=== PATIENT | male | born 1975 | race African-American/Black ===

== ENCOUNTER 2016-10-07 21:36 | Emergency (ER) | payer OTHER ==
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
[2016-10-07] MEDS ORDERED: HYDROCODONE/ACETAMINOPHEN 5-325 MG 6 TAB/DSPK PO PRN (23:35)
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
[2016-10-08 00:12] VITALS: BP 107/74
== END 2016-10-08 00:05 | disposition home or self-care (01) ==
LOC: ER 21:36
DX: M25.512 Pain in left shoulder (principal); M79.1 Myalgia; V48.5XXA Car driver injured in noncollision transport accident in traffic accident, initial encounter
CPT/HCPCS: 99283

== ENCOUNTER 2017-11-17 16:22 | Emergency (ER) | payer OTHER ==
[2017-11-17] MEDS ORDERED: HYDROMORPHONE HCL INJ/PF 2 MG/ML AMPULE IM ONE (17:17)
[2017-11-17] MEDS ORDERED: LIDOCAINE 5% (700 MG) TRANSDERMAL ADH..PATCH TP ONE (17:20)
--- NOTE | 2017-11-17 17:20 | ER Document Report ---
HPI - HPI Patient complains to provider of: Low back pain Onset: Other - 13 years Onset/Duration: Worse Quality of pain: Sharp Pain Level: 4 Context: Patient complains of chronic back pain for the past 13 years that worsened 10 days ago. Patient states that he thought that he was starting to gain weight and was attempting to increase his exercise by doing sit ups. Patient states the following day his back pain flared up. Patient denies any radiculopathy, paresthesia urinary retention or incontinence symptoms. Patient denies any fever. Patient denies any other new trauma. Patient is concerned that he needs x-rays because of how sharp his back pain is. Associated Symptoms: Other - Low back pain. denies: Fever Exacerbated by: Movement Relieved by: Denies Similar symptoms previously: Yes Recently seen / treated by doctor: No - ROS ROS below otherwise negative: Yes Systems Reviewed and Negative: Yes All other systems reviewed and negative - CONSTITUTIONAL Constitutional: DENIES: Fever, Chills - NEURO Neurology: DENIES: Headache, Weakness - GASTROINTESTINAL Gastrointestinal: DENIES: Nausea, Patient vomiting - URINARY Urinary: DENIES: Dysuria - MUSCULOSKELETAL Musculoskeletal: REPORTS: Back Pain. DENIES: Extremity pain, Neck Pain - DERM Skin Color: Normal Skin Problems: None Past Medical History - General Information source: Patient - Social History Smoking Status: Never Smoker Frequency of alcohol use: Occasional Drug Abuse: None Occupation: None Lives with: Spouse/Significant other Family History: Hypertension. denies: CAD - Past Medical History Cardiac Medical History: Reports: Hx Hypertension Renal/ Medical History: Denies: Hx Peritoneal Dialysis Musculoskeltal Medical History: Reports Hx Musculoskeletal Deformity, Reports Hx Musculoskeletal Trauma, Reports Other - Tronic back pain Psychiatric Medical History: Reports: Hx Depression, Hx Post Traumatic Stress Disorder Past Surgical History: Reports: Hx Orthopedic Surgery - LLE for compartment syndrome - Immunizations Immunizations up to date: Yes Hx Diphtheria, Pertussis, Tetanus Vaccination: Yes - 2011 Vertical Provider Document - CONSTITUTIONAL Agree With Documented VS: Yes Exam Limitations: No Limitations General Appearance: WD/WN, No Apparent Distress Notes: PHYSICAL EXAMINATION: GENERAL: Well-appearing, well-nourished and in no acute distress. HEAD: Atraumatic, normocephalic. EYES: sclera clear, anicteric, conjunctiva are normal. ENT: nares patent, Moist mucous membranes. NECK: Normal range of motion, supple no lymphadenopathy LUNGS: respirations unlabored HEART: Regular rate and rhythm without murmurs EXTREMITIES: Normal range of motion, no pitting or edema. No cyanosis. Gait normal, pt ambulates without difficulty BACK: Lower lumbar paraspinal tenderness, lower lumbar midline tenderness, no deformities or step-offs. No CVA tenderness. NEUROLOGICAL: Cranial nerves grossly intact. Normal speech, normal gait. No saddle anesthesia. 1+ bilateral patellar and Achilles reflexes, no footdrop PSYCH: Normal mood, normal affect. SKIN: Warm, Dry, normal turgor, no rashes or lesions noted. - INFECTION CONTROL TRAVEL OUTSIDE OF THE [place] IN LAST 30 DAYS: No - RESPIRATORY O2 Sat by Pulse Oximetry: 97 Course - Re-evaluation Re-evalutation: 11/17/17 17:19 Discussed with patient plan of care. Patient is insistent that he needs an x- ray of his low back. Patient advised that he will likely need outpatient follow -up with his primary doctor for referral for an outpatient MRI as well as pain management and physical therapy referrals. Patient still insistent that he needs an x-ray of his back. 11/17/17 18:10 The patient presents with low back pain without signs of spinal cord compression , cauda equina syndrome, infection, aneurysm, or other serious etiology. The patient is neurologically intact. Given the extremely risk of these diagnoses further testing and evaluation for these possibilities does not appear to be indicated at this time. Patient has been instructed to return if the symptoms worsen or change in any way. - Vital Signs Vital signs: Temp Pulse Resp BP Pulse Ox 98.4 F 93 20 132/85 H 97 11/17/17 16:27 11/17/17 16:27 11/17/17 16:27 11/17/17 16:27 11/17/17 16:27 - Diagnostic Test Radiology reviewed: Reports reviewed Discharge - Discharge Clinical Impression: Low back pain Qualifiers: Chronicity: chronic Back pain laterality: bilateral Sciatica presence: without sciatica Qualified Code(s): M54.5 - Low back pain Condition: Stable Disposition: HOME, SELF-CARE Instructions: Ice Packs ([facility]), Low Back Pain ([facility]), Oral Narcotic Medication ( [facility]), Warm Packs ([facility]) Additional Instructions: Return immediately for any new or worsening symptoms Followup with your primary care provider, call tomorrow to make a followup appointment You may benefit from a referral to physical therapy as well as pain management for further management of her chronic low back pain symptoms. You should also follow-up with a spinal specialist. Your primary doctor can make these referrals for you. Prescriptions: Oxycodone HCl/Acetaminophen [Percocet 5-325 mg Tablet] 1 tab PO ASDIR PRN #15 tablet PRN Reason: Referrals: [facility] [Provider Group] - Follow up as needed [facility] [Provider Group] - 11/20/17
--- NOTE | 2017-11-17 17:59 | RADIOLOGY REPORT (SQ) ---
EXAM DESCRIPTION: L SPINE WHOLE COMPLETED DATE/TIME: 11/17/2017 5:42 pm REASON FOR STUDY: low back pain COMPARISON: None. NUMBER OF VIEWS: Five views including obliques. TECHNIQUE: AP, lateral, oblique, and sacral radiographic images acquired of the lumbar spine. LIMITATIONS: None. FINDINGS: MINERALIZATION: Normal. SEGMENTATION: Normal. No transitional anatomy. ALIGNMENT: Normal. VERTEBRAE: Maintained height. No fracture or worrisome bone lesion. DISCS: Multilevel disc space narrowing with osteophytes. POSTERIOR ELEMENTS: Pedicles and facets are intact. No pars defect or posterior arch defects. Facet arthropathy is present. HARDWARE: None in the spine. PARASPINAL SOFT TISSUES: Normal. PELVIS: Intact as visualized. No fractures or worrisome bone lesions. SI joints intact. OTHER: No other significant finding. IMPRESSION: SPONDYLOSIS WITHOUT BONE LESION OR FRACTURE. TECHNICAL DOCUMENTATION: JOB ID: [id number] [place]-72 2010 [employer]- All Rights Reserved Reading location - IP/workstation name: [email or web address]
[2017-11-17 18:49] VITALS: BP 121/91
== END 2017-11-17 18:47 | disposition home or self-care (01) ==
LOC: ER 16:22
DX: M54.5 Low back pain (principal); G89.29 Other chronic pain
CPT/HCPCS: 99283; 96372; 72110; J1170

== ENCOUNTER 2019-09-12 19:57 | Inpatient (IN) | payer OTHER ==
[~2019-09-12 19:57] MED LIST: ETOMIDATE INJ/PF 20 MG/10 ML SDV IV ONE; SUCCINYLCHOLINE CHLORIDE INJ 200 MG/10 ML VIAL ONE
[2019-09-12] MEDS ORDERED: ONDANSETRON HCL INJ/PF 4 MG/2 ML SDV IV ONE (20:06)
[2019-09-12] MEDS ORDERED: NALOXONE HCL INJ 2 MG/2 ML DISP.SYRIN IV ONE (20:06)
[2019-09-12] MEDS ORDERED: PROPOFOL INJ 200 MG/20 ML VIAL IV ONE (20:21)
[2019-09-12] MEDS ORDERED: SUCCINYLCHOLINE CHLORIDE INJ 200 MG/10 ML VIAL IV ONE ×2 (20:28→20:36)
[2019-09-12] MEDS ORDERED: ETOMIDATE INJ/PF 20 MG/10 ML SDV IV ONE (20:28)
[2019-09-12 20:30] LABS: VENOUS BLOOD BASE EXCESS -1.7 mmol/L; VENOUS BLOOD HCO3 24.9 mmol/L (20-32); VENOUS BLOOD PH 7.32 (7.30-7.42)
[2019-09-12] MEDS ORDERED: NORMAL SALINE 500 ML IV ONE (20:31)
[2019-09-12 20:32] LABS: ABSOLUTE BASOPHILS # (AUTO) 0.1 10^3/uL (0.0-0.2); ABSOLUTE EOSINOPHILS # (AUTO) 0.1 10^3/uL (0.0-0.6); ABSOLUTE LYMPHOCYTES (AUTO) 1.9 10^3/uL (0.5-4.7); ABSOLUTE MONOCYTES (AUTO) 0.4 10^3/uL (0.1-1.4); ABSOLUTE NEUT (AUTO) 1.3 10^3/uL (1.7-8.2); BASOPHILS % (AUTO) 1.4 % (0-2); EOSINOPHILS % (AUTO) 3.1 % (0-6); HEMATOCRIT 40.4 % (37.9-51.0); HEMOGLOBIN 13.6 g/dL (13.5-17.0); LYMPHOCYTES % (AUTO) 50.4 % (13-45); MEAN CORPUSCULAR HEMOGLOBIN 30.3 pg (27.0-33.4); MEAN CORPUSCULAR HGB CONC 33.7 g/dL (32.0-36.0); MEAN CORPUSCULAR VOLUME 90 fl (80-97); PLATELET COUNT 207 10^3/uL (150-450); RED BLOOD COUNT 4.49 10^6/uL (4.35-5.55); RED CELL DISTRIBUTION WIDTH 13.2 % (11.5-14.0); SEGMENTED NEUTROPHILS % (AUTO) 34.1 % (42-78); TOTAL CELLS COUNTED % (AUTO) 100 %; WHITE BLOOD COUNT 3.8 10^3/uL (4.0-10.5)
[2019-09-12] MEDS ORDERED: HYDROCORTISONE SOD SUCCINATE INJ/PF 100 MG/2 ML SDV IV ONE (20:33)
[2019-09-12] MEDS ORDERED: NORMAL SALINE 1000 ML 1,000 ML IV ONE ×2 (20:34→23:59)
[2019-09-12] MEDS ORDERED: PIPERACILLIN/TAZOBACTAM 3.375 GM VIAL IV ONE ×2 (20:37→23:05)
--- NOTE | 2019-09-12 20:38 | ER Document Report ---
ED General - General Stated Complaint: UNRESPONSIVE Mode of Arrival: Medic Information source: Emergency Med Personnel Cannot obtain history due to: Altered mental status, Other TRAVEL OUTSIDE OF THE [place] IN LAST 30 DAYS: No - HPI Onset: Other - [place] and EMS [place]. - Related Data Allergies/Adverse Reactions: No Known Allergies Allergy (Verified 11/17/17 16:23) Past Medical History - General Information source: Emergency Med Personnel - Social History Smoking Status: Current Every Day Smoker Lives with: Family Family History: Hypertension. denies: CAD Renal/ Medical History: Denies: Hx Peritoneal Dialysis Musculoskeletal Medical History: Reports Hx Musculoskeletal Deformity, Reports Hx Musculoskeletal Trauma Psychiatric Medical History: Reports: Hx Depression, Hx Post Traumatic Stress Disorder Past Surgical History: Reports: Hx Orthopedic Surgery - LLE for compartment syndrome - Immunizations Immunizations up to date: Yes Hx Diphtheria, Pertussis, Tetanus Vaccination: Yes - 2011 Physical Exam - Vital signs Vitals: Resp Pulse Ox 15 98 09/12/19 20:04 09/12/19 20:04 Interpretation: Normal - Notes Notes: Patient obtunded unresponsive unable to control airway secretions. Therefore elected to intubate patient for airway protection and his altered mental status. - General General appearance: Appears well, Alert In distress: Severe - HEENT Head: Normocephalic, Atraumatic Eyes: Normal Conjunctiva: Normal - Unresponsive and unable to maintain open airway. Despite IV Narcan 2 mg and Zofran 4 mg patient still unarousable. Pupils: PERRL Mouth/Lips: Normal Mucous membranes: Moist Neck: Normal - Respiratory Respiratory status: Agonal respirations Chest status: Nontender Breath sounds: Normal Chest palpation: Normal - Cardiovascular Rhythm: Regular Heart sounds: Normal auscultation Murmur: No - Abdominal Inspection: Normal Distension: No distension Bowel sounds: Normal Tenderness: Nontender Organomegaly: No organomegaly - Back Back: Normal, Nontender - Extremities General upper extremity: Normal inspection, Nontender, Normal color, Normal ROM, Normal temperature General lower extremity: Normal inspection, Nontender, Normal color, Normal ROM, Normal temperature, Normal weight bearing. No: Zohaib's sign - Neurological Neuro grossly intact: No - Patient somnolent obtunded flaccid and has motor strength diffuse. Agonal. Cognition: Normal, Other - Unable to do a complete neuro exam due to patient's obtunded state. Orientation: AAOx4 Henderson Coma Scale Eye Opening: Spontaneous Marquita Coma Scale Verbal: Oriented Henderson Coma Scale Motor: Obeys Commands Henderson Coma Scale Total: 15 Speech: Normal Motor strength normal: LUE, RUE, LLE, RLE Sensory: Normal Notes: Flaccid extremities throughout upper and lower extremities. Unable to maintain airway secretions. Ducted to intubate patient for airway control due to unconscious state. - Psychological Associated symptoms: Normal affect, Normal mood - Skin Skin Temperature: Warm Skin Moisture: Dry Skin Color: Normal Course - Re-evaluation Re-evalutation: 09/12/19 22:59 Reevaluation patient is hemodynamically stable intubated resting comfortably sats are in the normal range. - Vital Signs Vital signs: Temp Pulse Resp BP Pulse Ox 15 93/59 L 98 09/12/19 22:36 09/12/19 22:36 09/12/19 22:36 - Laboratory Result Diagrams: 09/12/19 20:12 09/12/19 20:12 Laboratory results interpreted by me: 09/12/19 09/12/19 09/12/19 20:12 20:12 20:12 WBC 3.8 L Lymph % (Auto) 50.4 H Absolute Neuts (auto) 1.3 L Seg Neutrophils % 34.1 L Creatinine 1.50 H Est GFR (MDRD) Non-Af 51 L Glucose 129 H Lactic Acid 2.9 H AST 127 H Creatine Kinase 705 H Total Protein 9.2 H TSH Urine Protein Urine Blood Salicylates < 1.0 L Acetaminophen < 10 L Serum Alcohol 09/12/19 09/12/19 09/12/19 20:12 20:12 20:47 WBC Lymph % (Auto) Absolute Neuts (auto) Seg Neutrophils % Creatinine Est GFR (MDRD) Non-Af Glucose Lactic Acid AST Creatine Kinase Total Protein TSH 0.38 L Urine Protein 30 H Urine Blood SMALL H Salicylates Acetaminophen Serum Alcohol 546 H* - Diagnostic Test Radiology reviewed: Image reviewed, Reports reviewed Procedures - Intubation Orotracheal Airway evaluation: Large tongue Mallampati Classification: Class 2 Medications: Etomidate, Succinylcholine, Diprivan Intubation method: Orotracheal Blade type: Bharath Blade size: 3 ETT size: 8.0 ETT secured at: Gums ETT secured at (cm): 24 Ventilator settings: CMV Tidal volume: 500 FiO2: 50 Respirations: 14 PEEP: 5 Critical Care Note - Critical Care Note Total time excluding time spent on procedures (mins): 49 Discharge - Discharge Clinical Impression: Alcohol intoxication Qualifiers: Complication of substance-induced condition: with delirium Qualified Code(s): F 10.921 - Alcohol use, unspecified with intoxication delirium Clinical Impression: (Ruled Out): Respiratory distress Condition: Critical Disposition: ADMITTED INPATIENT Admitting Provider: Bhavik (Electronics Repair Technician) Unit Admitted: ICU
[2019-09-12] MEDS: PROPOFOL 1,000 MG/100 ML INFUS..BTL IV PRN (20:40)
[2019-09-12 20:49] LABS: BLOOD UREA NITROGEN 9 mg/dL (7-20); CARBON DIOXIDE 24 mmol/L (22-30); CHLORIDE 104 mmol/L (98-107); GLUCOSE 129 mg/dL (75-110); POTASSIUM 4.1 mmol/L (3.6-5.0)
[2019-09-12 20:50] LABS: ALBUMIN 4.9 g/dL (3.5-5.0); ALKALINE PHOSPHATASE 53 U/L (38-126); ANION GAP 16 (5-19); ASPARTATE AMINO TRANSFERASE 127 U/L (17-59); BILIRUBIN,DIRECT 0.1 mg/dL (0.0-0.4); BILIRUBIN,TOTAL 0.4 mg/dL (0.2-1.3); CREATINE KINASE 705 U/L (55-170); TOTAL PROTEIN 9.2 g/dL (6.3-8.2)
[2019-09-12 20:51] LABS: ACETAMINOPHEN < 10 ug/mL (10-30); SALICYLATE < 1.0 mg/dL (2.0-20.0)
[2019-09-12] MEDS ORDERED: PANTOPRAZOLE SODIUM 40 MG VIAL IV ONE (21:17)
[2019-09-12 21:29] LABS: APPEARANCE,URINE CLEAR; BILIRUBIN,URINE NEGATIVE (NEGATIVE); COLOR,URINE STRAW; GLUCOSE, URINE NEGATIVE (NEGATIVE); KETONES,URINE NEGATIVE (NEGATIVE); PROTEIN,URINE 30 mg/dL (NEGATIVE); URINE SPECIFIC GRAVITY 1.005; UROBILINOGEN,URINE NEGATIVE mg/dL (<2.0)
[2019-09-12 21:37] LABS: URINE AMPHETAMINES SCREEN NEGATIVE; URINE BARBITURATES SCREEN NEGATIVE; URINE BENZODIAZEPINES SCREEN NEGATIVE; URINE COCAINE SCREEN NEGATIVE; URINE MARIJUANA (THC) SCREEN NEGATIVE; URINE METHADONE SCREEN NEGATIVE; URINE PHENCYCLIDINE SCREEN NEGATIVE
--- NOTE | 2019-09-12 22:07 | RADIOLOGY REPORT (SQ) ---
EXAM DESCRIPTION: CT HEAD WITHOUT IV CONTRAST COMPLETED DATE/TME: 09/12/2019 20:45 CLINICAL HISTORY: 44 years, Male, ams COMPARISON: None. TECHNIQUE: 209 Images stored on PACS. All CT scanners at this facility use dose modulation, iterative reconstruction, and/or weight based dosing when appropriate to reduce radiation dose to as low as reasonably achievable (ALARA). [facility]: Dose Right [facility]: CareDose [facility]: Dose Right [facility]: Teradose 4D [facility]: Vend LIMITATIONS: None. FINDINGS: The globes are intact. Partial visualization of endotracheal and enteric tubes. Mucosal thickening of the ethmoid air cells. Air-fluid level left maxillary sinus. No displaced or depressed skull fracture. No intra or extra-axial hemorrhage. CT is limited for evaluation of acute infarct. No CT evidence for large or territorial acute infarct. No mass. No midline shift IMPRESSION: No acute intracranial abnormality TECHNICAL DOCUMENTATION: Quality ID # 436: Final reports with documentation of one or more dose reduction techniques (e.g., Automated exposure control, adjustment of the mA and/or kV according to patient size, use of iterative reconstruction technique) copyright 2011 [email or web address]- All Rights Reserved
--- NOTE | 2019-09-12 22:12 | RADIOLOGY REPORT (SQ) ---
EXAM DESCRIPTION: CT of the cervical spine without contrast. CLINICAL HISTORY: 44 years Male ams COMPARISON: None TECHNIQUE: Axial images without contrast. Sagittal coronal reconstruction. This exam was performed according to our departmental dose-optimization program, which includes automated exposure control, adjustment of the mA and/or kV according to patient size and/or use of iterative reconstruction technique.. FINDINGS: No obvious acute fracture dislocation. Minimal retrolisthesis at C5-6 where probably degenerative and associated with mild diffuse disc bulge and stenosis. No foraminal stenosis. Other levels are unremarkable. No suspicious prevertebral soft tissue swelling. Endotracheal tube is identified. IMPRESSION: No significant findings in the cervical spine. Mild degenerative changes at C5-6.
--- NOTE | 2019-09-12 22:13 | RADIOLOGY REPORT (SQ) ---
EXAM DESCRIPTION: CT CHEST WITH IV CONTRAST, CT ABDOMEN PELVIS WITH IV CONTRAST COMPLETED DATE/TME: 09/12/2019 20:48 CLINICAL HISTORY: 44 years, Male, ams COMPARISON: None. TECHNIQUE: 744 Images stored on PACS. All CT scanners at this facility use dose modulation, iterative reconstruction, and/or weight based dosing when appropriate to reduce radiation dose to as low as reasonably achievable (ALARA). [facility]: Dose Right [facility]: CareDose [facility]: Dose Right [facility]: Teradose 4D [facility]: [employer] LIMITATIONS: None. FINDINGS: CT chest: Endotracheal tube partially visualized. No mediastinal or hilar adenopathy. Heart and pericardium are unremarkable. Small amount of fluid in the distal esophagus. Osseous structures of the thorax are grossly intact. No pneumothorax. Dependent atelectasis in each lung base. CT abdomen/pelvis: Osseous structures are grossly intact. Fatty infiltrative change to the liver. The spleen, adrenal glands, pancreas, kidneys are unremarkable. The gallbladder is present. No gross evidence for bowel obstruction. Fat-containing periumbilical hernia. Normal appendix. Guzman catheter in urinary bladder. Air in the bladder likely reflects iatrogenic air. No free air or free fluid. IMPRESSION: No acute intrathoracic process. No acute intra-abdominal/pelvic process. TECHNICAL DOCUMENTATION: Quality ID # 436: Final reports with documentation of one or more dose reduction techniques (e.g., Automated exposure control, adjustment of the mA and/or kV according to patient size, use of iterative reconstruction technique) copyright 2010 [employer]- All Rights Reserved
--- NOTE | 2019-09-12 22:22 | RADIOLOGY REPORT (SQ) ---
EXAM DESCRIPTION: CLINICAL HISTORY: 44 years Male, intubated COMPARISON: CT chest from today. FINDINGS: [id number] cardiomegaly. Mild mediastinal widening mostly due to vascular structures as seen on CT. No significant findings on chest x-ray. CT chest demonstrated [id number] bilateral lower lobe consolidations. Endotracheal tube well above the dimitri. No suspicious pneumothorax.
[2019-09-12] MEDS ORDERED: PROPOFOL 1,000 MG/100 ML INFUS..BTL IV PRN (22:48)
[2019-09-12] MEDS ORDERED: ONDANSETRON HCL INJ/PF 4 MG/2 ML SDV IV PRN (22:48)
[2019-09-12] MEDS ORDERED: RINGERS SOLUTION,LACTATED 1,000 ML IV PRN (22:48)
[2019-09-12] MEDS ORDERED: HYDROCORTISONE SOD SUCCINATE INJ/PF 100 MG/2 ML SDV ONE (22:59)
[2019-09-12] MEDS ORDERED: PHARMACY COMMUNICATION ORDER MC NR (23:00)
--- NOTE | 2019-09-12 23:00 | RADIOLOGY REPORT (SQ) ---
EXAM DESCRIPTION: XR ABDOMEN 1 VIEW (KUB) COMPLETED DATE/TME: 09/12/2019 00:00 CLINICAL HISTORY: 44 years, Male, verify placement of ng tube COMPARISON: None. NUMBER OF VIEWS: 1 TECHNIQUE: AP abdomen LIMITATIONS: None. FINDINGS: Residual contrast in the collecting system. Overlying cardiac leads and wires. The bowel gas pattern is nonspecific. Evaluation for free air limited on a supine view. Tip of the enteric tube in the left upper quadrant/stomach. IMPRESSION: Nonspecific bowel gas pattern. Tip of the enteric tube in the stomach. copyright 2010 [employer]- All Rights Reserved
[2019-09-13] MEDS: PROPOFOL 1,000 MG/100 ML INFUS..BTL IV PRN ×2 (01:43→05:32)
[2019-09-13] MEDS ORDERED: INFLUENZA QUAD (6MOS+) 2019-20 VAC 0.5 ML SYR IM ONE (02:06)
[2019-09-13 02:12] LABS: ABSOLUTE LYMPHOCYTES (AUTO) 1.1 10^3/uL (0.5-4.7); ABSOLUTE MONOCYTES (AUTO) 0.1 10^3/uL (0.1-1.4); ABSOLUTE NEUT (AUTO) 2.4 10^3/uL (1.7-8.2); BASOPHILS % (AUTO) 0.7 % (0-2); EOSINOPHILS % (AUTO) 0.3 % (0-6); HEMATOCRIT 35.6 % (37.9-51.0); HEMOGLOBIN 11.9 g/dL (13.5-17.0); LYMPHOCYTES % (AUTO) 29.6 % (13-45); MEAN CORPUSCULAR HEMOGLOBIN 30.3 pg (27.0-33.4); MEAN CORPUSCULAR HGB CONC 33.5 g/dL (32.0-36.0); MEAN CORPUSCULAR VOLUME 90 fl (80-97); MONOCYTES % (AUTO) 3.4 % (3-13); PLATELET COUNT 181 10^3/uL (150-450); RED BLOOD COUNT 3.94 10^6/uL (4.35-5.55); RED CELL DISTRIBUTION WIDTH 13.3 % (11.5-14.0); TOTAL CELLS COUNTED % (AUTO) 100 %; WHITE BLOOD COUNT 3.7 10^3/uL (4.0-10.5)
[2019-09-13] MEDS ORDERED: LORAZEPAM INJ 2 MG/1 ML VIAL IV PRN (02:21)
[2019-09-13 02:36] LABS: ALBUMIN 3.8 g/dL (3.5-5.0); ALKALINE PHOSPHATASE 39 U/L (38-126); ANION GAP 15 (5-19); ASPARTATE AMINO TRANSFERASE 122 U/L (17-59); BILIRUBIN,DIRECT 0.2 mg/dL (0.0-0.4); BILIRUBIN,TOTAL 0.4 mg/dL (0.2-1.3); BLOOD UREA NITROGEN 9 mg/dL (7-20); CALCIUM 7.5 mg/dL (8.4-10.2); CARBON DIOXIDE 19 mmol/L (22-30); CHLORIDE 110 mmol/L (98-107); GLUCOSE 120 mg/dL (75-110); PHOSPHORUS 4.3 mg/dL (2.5-4.5); POTASSIUM 4.4 mmol/L (3.6-5.0); TOTAL PROTEIN 7.5 g/dL (6.3-8.2)
[2019-09-13] MEDS ORDERED: NORMAL SALINE 1000 ML 1,000 ML IV ONE (03:00)
[2019-09-13 03:08] LABS: ARTERIAL BLOOD BASE EXCESS -4.3 mmol/L; ARTERIAL BLOOD H2CO3 1.12 mmol/L (1.05-1.35); ARTERIAL BLOOD HCO3 20.5 mmol/L (20-24); ARTERIAL BLOOD O2 SATURATION 99.5 % (94-98); ARTERIAL BLOOD PCO2 37.1 mmHg (35-45); ARTERIAL BLOOD PH 7.36 (7.35-7.45); ARTERIAL BLOOD PO2 239.9 mmHg (80-100); ARTERIAL BLOOD TOTAL CO2 21.7 mmol/L (23-27)
[2019-09-13 03:16] LABS: ARTERIAL BLOOD FIO2 50%
--- NOTE | 2019-09-13 05:30 | RADIOLOGY REPORT (SQ) ---
EXAM DESCRIPTION: XR CHEST 1 VIEW COMPLETED DATE/TME: 09/13/2019 04:00 CLINICAL HISTORY: 44 years, Male, ETT placement verification COMPARISON: 09/12/2019 chest NUMBER OF VIEWS: 1 TECHNIQUE: Portable chest LIMITATIONS: None FINDINGS: Placement of an enteric tube with the tip in the left upper quadrant/stomach. Overlying cardiac leads and wires. Endotracheal tube remains in place. Heart size is grossly stable. No discrete pneumothorax. Lungs are clear IMPRESSION: Placement of an enteric tube. Other findings are grossly stable copyright 2011 [employer]- All Rights Reserved
[2019-09-13] MEDS ORDERED: DEXMEDETOMIDINE IN 0.9 % NACL 400 MCG/100 ML RTUPB IV PRN (05:31)
[2019-09-13] MEDS ORDERED: THIAMINE HCL 100 MG, FOLIC ACID 1 MG in NORMAL SALINE 250 ML IV SCH (10:00)
[2019-09-13] MEDS ORDERED: ENOXAPARIN SODIUM INJ 30 MG/0.3 ML DISP.SYRIN SUBCUT SCH (10:00)
[2019-09-13] MEDS: LORAZEPAM INJ 2 MG/1 ML VIAL IV PRN ×4 (11:11→23:50)
[2019-09-13 11:23] LABS: FREE T3 4.98 pg/mL (2.77-5.27); FREE T4 (FREE THYROXINE) 1.08 ng/dL (0.78-2.19)
[2019-09-13] MEDS: FOLIC ACID 1 MG TABLET PO SCH (12:01)
[2019-09-13] MEDS: MULTIVITAMIN TABLET PO SCH (12:01)
[2019-09-13] MEDS: THIAMINE HCL 100 MG TABLET PO SCH (12:01)
[2019-09-13] MEDS: HEPARIN SOD (PORCINE) 5,000 UNIT/ML 1 ML VIAL SUBCUT SCH ×2 (14:16→21:40)
--- NOTE | 2019-09-13 14:52 | PDOC CRITICAL CARE PROG REPORT ---
General Date:: 09/13/19 - Critical Care Attending Note Resuscitation Status: Full Code Events in the past 12 to 24 Hours:: I extubated the pt today. Pt has episoded of voluntary shaking and jerking of his lower legs that last a few seconds but are not followed by a post-ictal state. states that pt has PTSD and a TBI. He has GAMALIEL for which he is supposed to be on CPAP. [facility] but is non- compliant with his meds and his CPAP.Staff reports hearing pt say that he wants to and that he "took a bunch of pills". Reason for ICU Addmission:: AMS, unresponsive, ETOH intoxication Physical Exam Vital Signs: Temp Pulse Resp BP Pulse Ox 99.5 F 101 H 14 123/77 100 09/13/19 12:00 09/13/19 12:00 09/13/19 12:00 09/13/19 12:00 09/13/19 12:00 Intake & Output 09/12/19 09/13/19 09/14/19 06:59 06:59 06:59 Intake Total 1837 1000 Output Total 2200 1345 Balance -363 -345 Weight 105.7 kg Weight/Height Weight 105.7 kg Height 6 ft 3 in General appearance: PRESENT: no acute distress, well-developed, well-nourished Head exam: PRESENT: atraumatic, normocephalic Respiratory exam: PRESENT: clear to auscultation rosenda, unlabored GI/Abdominal exam: PRESENT: soft, other - NTND Extremities exam: PRESENT: other - no edema Psychiatric exam: PRESENT: unusual affect Laboratory/Radiographs Laboratory Results: 09/13/19 01:56 09/13/19 01:56 09/12/19 09/12/19 09/12/19 20:12 20:12 20:12 WBC 3.8 L RBC 4.49 Hgb 13.6 Hct 40.4 MCV 90 MCH 30.3 MCHC 33.7 RDW 13.2 Plt Count 207 Seg Neutrophils % 34.1 L Carbonic Acid HCO3/H2CO3 Ratio ABG pH ABG pCO2 ABG pO2 ABG HCO3 ABG O2 Saturation ABG Base Excess VBG pH VBG pCO2 VBG HCO3 VBG Base Excess FiO2 Sodium 144.3 Potassium 4.1 Chloride 104 Carbon Dioxide 24 Anion Gap 16 BUN 9 Creatinine 1.50 H Est GFR ( Amer) > 60 Glucose 129 H Lactic Acid 2.9 H Calcium 9.0 Phosphorus Magnesium Total Bilirubin 0.4 AST 127 H Alkaline Phosphatase 53 Total Protein 9.2 H Albumin 4.9 TSH Free T4 Free T3 pg/mL Urine Color Urine Appearance Urine pH Ur Specific [place] Urine Protein Urine Glucose (UA) Urine Ketones Urine Blood Urine RBC (Auto) 09/12/19 09/12/19 09/12/19 20:12 20:12 20:47 WBC RBC Hgb Hct MCV MCH MCHC RDW Plt Count Seg Neutrophils % Carbonic Acid HCO3/H2CO3 Ratio ABG pH ABG pCO2 ABG pO2 ABG HCO3 ABG O2 Saturation ABG Base Excess VBG pH 7.32 VBG pCO2 49.0 VBG HCO3 24.9 VBG Base Excess -1.7 FiO2 Sodium Potassium Chloride Carbon Dioxide Anion Gap BUN Creatinine Est GFR ( Amer) Glucose Lactic Acid Calcium Phosphorus Magnesium Total Bilirubin AST Alkaline Phosphatase Total Protein Albumin TSH 0.38 L Free T4 Free T3 pg/mL Urine Color STRAW Urine Appearance CLEAR Urine pH 6.0 Ur Specific [place] 1.005 Urine Protein 30 H Urine Glucose (UA) NEGATIVE Urine Ketones NEGATIVE Urine Blood SMALL H Urine RBC (Auto) 0 09/13/19 09/13/19 09/13/19 01:56 01:56 01:56 WBC 3.7 L RBC 3.94 L Hgb 11.9 L Hct 35.6 L MCV 90 MCH 30.3 MCHC 33.5 RDW 13.3 Plt Count 181 Seg Neutrophils % 66.0 Carbonic Acid HCO3/H2CO3 Ratio ABG pH ABG pCO2 ABG pO2 ABG HCO3 ABG O2 Saturation ABG Base Excess VBG pH VBG pCO2 VBG HCO3 VBG Base Excess FiO2 Sodium 144.4 Potassium 4.4 Chloride 110 H Carbon Dioxide 19 L Anion Gap 15 BUN 9 Creatinine 1.55 H Est GFR ( Amer) > 60 Glucose 120 H Lactic Acid 3.3 H Calcium 7.5 L Phosphorus 4.3 Magnesium 2.0 Total Bilirubin 0.4 AST 122 H Alkaline Phosphatase 39 Total Protein 7.5 Albumin 3.8 TSH Free T4 Free T3 pg/mL Urine Color Urine Appearance Urine pH Ur Specific [place] Urine Protein Urine Glucose (UA) Urine Ketones Urine Blood Urine RBC (Auto) 09/13/19 09/13/19 01:56 03:00 WBC RBC Hgb Hct MCV MCH MCHC RDW Plt Count Seg Neutrophils % Carbonic Acid 1.12 HCO3/H2CO3 Ratio 18:1 ABG pH 7.36 ABG pCO2 37.1 ABG pO2 239.9 H ABG HCO3 20.5 ABG O2 Saturation 99.5 H ABG Base Excess -4.3 VBG pH VBG pCO2 VBG HCO3 VBG Base Excess FiO2 50% Sodium Potassium Chloride Carbon Dioxide Anion Gap BUN Creatinine Est GFR ( Amer) Glucose Lactic Acid Calcium Phosphorus Magnesium Total Bilirubin AST Alkaline Phosphatase Total Protein Albumin TSH Free T4 1.08 Free T3 pg/mL 4.98 Urine Color Urine Appearance Urine pH Ur Specific [place] Urine Protein Urine Glucose (UA) Urine Ketones Urine Blood Urine RBC (Auto) 09/12/19 09/12/19 09/12/19 20:12 20:12 20:12 Creatine Kinase 705 H Troponin I < 0.012 NT-Pro-B Natriuret Pep < 11 Impressions: KUB X-Ray 09/12/19 00:00 IMPRESSION: Nonspecific bowel gas pattern. Tip of the enteric tube in the stomach. copyright 2010 [employer]- All Rights Reserved Head CT 09/12/19 20:45 IMPRESSION: No acute intracranial abnormality TECHNICAL DOCUMENTATION: Quality ID # [id number]: Final reports with documentation of one or more dose reduction techniques (e.g., Automated exposure control, adjustment of the mA and/or kV according to patient size, use of iterative reconstruction technique) copyright 2010 [employer] All Rights Reserved Cervical Spine CT 09/12/19 20:46 IMPRESSION: No significant findings in the cervical spine. Mild degenerative changes at C5-6. Abdomen/Pelvis CT 09/12/19 20:48 IMPRESSION: No acute intrathoracic process. No acute intra-abdominal/pelvic process. TECHNICAL DOCUMENTATION: Quality ID # [id number]: Final reports with documentation of one or more dose reduction techniques (e.g., Automated exposure control, adjustment of the mA and/or kV according to patient size, use of iterative reconstruction technique) copyright 2010 [employer] All Rights Reserved Chest CT 09/12/19 20:48 IMPRESSION: No acute intrathoracic process. No acute intra-abdominal/pelvic process. TECHNICAL DOCUMENTATION: Quality ID # [id number]: Final reports with documentation of one or more dose reduction techniques (e.g., Automated exposure control, adjustment of the mA and/or kV according to patient size, use of iterative reconstruction technique) copyright 2010 [employer]- All Rights Reserved Chest X-Ray 09/13/19 04:00 IMPRESSION: Placement of an enteric tube. Other findings are grossly stable copyright 2010 [employer]- All Rights Reserved Assessment and Plan - Diagnosis (1) Acute respiratory failure Is this a current diagnosis for this admission?: Yes (2) Alcohol intoxication Qualifiers: Complication of substance-induced condition: with unspecified complication Qualified Code(s): F10.929 - Alcohol use, unspecified with intoxication, unspecified Is this a current diagnosis for this admission?: Yes (3) PTSD (post-traumatic stress disorder) Is this a current diagnosis for this admission?: Yes (4) TBI (traumatic brain injury) Qualifiers: Encounter type: sequela Is this a current diagnosis for this admission?: No (5) Depression Qualifiers: Depression Type: unspecified Qualified Code(s): F32.9 - Major depressive disorder, single episode, unspecified Is this a current diagnosis for this admission?: Yes Plan Summary: Assessment: 44 yo man with acute respiratory failure due to ETOH intoxication. Pt also with h/o depression, PTSD, and TBI. Plan: 1. Respiratory: acute respiratory failure, resolved. I extubated the pt today. He is stable on RA. Pt has GAMALIEL but per his he does not wear his CPAP at home 2. CV: heart rate and BP acceptable 3. Psych/Social: alcohol intoxicaton, alcohol abuse. Pt also with h/o PTSD, TBI, depression. Possible suicide attempt. Pt having episodes in which he jerks his lower extremities for a few seconds. He is not post-ictal after these episodes. I do not think these represent seizure activity. Will continue with the CIWA protocol. Will start MVI, folic acid, thiamine. Will consult psychiatry and place on suicide precautions 4. ID: no source of infection, ATBX stopped 5. Renal: ERNESTO/CKD. Cr 1.55. Continue to monitor 6. Nutrition: regular diet 7. Prophylaxis: sq heparin Critical Time Critical Time (minutes): 33 Level of Care: ICU -: 1. The care of a critical patient is a dynamic process. This note is a district sales representative synopsis but static in nature. The timeframe for treatments given in order is not necessarily the actual time these treatments may have been done. 2. This patient requires critical care secondary to ongoing requirements for therapy not offered or safe outside the critical care environment. Transfer to a lower level of care will result in altered life or limb morbidity and mortality. 3. Multidisciplinary rounds completed. 4. ABCDE bundle addressed.
--- NOTE | 2019-09-13 15:45 | PSYCHOLOGICAL NOTE ---
Psych Note - Psych Note Date seen by psych provider: 09/13/19 Time seen by psych provider: 15:26 - attempted Psych Note: Reason for Consult: Reported Intentional Overdose Evaluation was attempted with patient (he was extubated this morning); however, was unable to awaken. Patient had a BAL of 546 at 2011 last night. IVC petition was completed due to concerns the patient intentional overdosed. This will ensure the patient can not sign out AMA before a psychiatric evaluation is competed. Evaluation will be attempted again tomorrow.
--- NOTE | 2019-09-13 19:27 | EKG REPORT ---
SEVERITY:- ABNORMAL ECG - SINUS TACHYCARDIA NONSPECIFIC T ABNORMALITIES, INFERIOR LEADS : Confirmed by: Hannah Bullard MD 13-Sep-2019 19:27:03
[2019-09-13] MEDS ORDERED: ACETAMINOPHEN 325 MG TABLET PO ONE (20:03)
--- NOTE | 2019-09-13 23:37 | CRITICAL CARE ADMISSION REPORT ---
HPI Date:: 09/13/19 Time:: 00:22 Reason for ICU Reason:: AMS, unresponsive, ETOH intoxication HPI: Mr. 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 Per ED reports and information obtained from , pt was on his way to [place] and was found in the airport unresponsive. EMS was called and pt was brought to the ED. He had no response to narcan trial and decision was made to intubate in the ED for airway protection. Head/neck/chest/abd/pelvis CT scan was grossly negative. reports that pt drinks vodka and beer daily but states he attempts to hide his habit from her but hiding the large Liter vodka bottles around the house; she is unable to estimate the average amount of alcohol intake daily but states she believes he has been drinking since about 2011. He is prescribed medications for PTSD but she states he rarely takes these and prefers drinking. She denies pt complaining of pain, feeling ill or having symptoms of illness prior to this episode. - Diagnosis/Plan (1) Alcohol intoxication Qualifiers: Complication of substance-induced condition: with unspecified complication Qualified Code(s): F10.929 - Alcohol use, unspecified with intoxication, unspecified Is this a current diagnosis for this admission?: Yes Plan: Maintain sedation with propofol while mechanically vented, continue IV flluids, thiamine and folate (2) Acute respiratory failure Is this a current diagnosis for this admission?: Yes Plan: Continue MV support, titrate FiO2 as tolerated, suction PRN, Chest CT showing mild-moderate bilateral lower lobe effusions - repeat chest Xray in the AM. ETT advanced 2cm from initial position after post intubation Xray. (3) Alcohol abuse, daily use Is this a current diagnosis for this admission?: Yes Plan: CIWA assessment q4h with ordered Ativan treatment PRN in anticipation of acute withdrawal, consider assessment for inpatient/outpatient services if willing to accept (4) PTSD (post-traumatic stress disorder) Is this a current diagnosis for this admission?: Yes Plan: Not currently taking prescribed medications per , consider psych eval if necessary once over acute phase, offer outpatient services if needed (5) TBI (traumatic brain injury) Is this a current diagnosis for this admission?: Yes Plan: Hx of TBI without reported deficits, CT head/neck negative (6) ERNESTO (acute kidney injury) Is this a current diagnosis for this admission?: Yes Plan: Current Cr 1.50 which is slightly elevated to his baseline of ~1.4, moitor I&O, trend renal indices, replace lytes PRN - . Plan Summary: Mr. Ramírez [place] the airport with a blood alcohol level >500, while this is the likely cause of him being found unresponsive and requiring intubation, he will still need adequate fluid resusitation and a recheck of his lactate of ensure this has gone down. He will be admitted to the ICU for continued monitoring while sedated on the MV. CIWA assessment will be initiated in anticipation of his likely withdrawal due to his heavy daily drinking of hard liquor and beer (amount unknown). updated in the ED and at bedside once pt reached the ICU. Informed her that it may be possible that he would remain intubated while he goes through the first several days of withdrawal symptoms to ensure he is able to safely withdrawal from alcohol if he is unable to tolerated weaning of sedation, she states understanding. Past Medical History Past Medical History: As per HPI Cardiac Medical History: Reports: Hypertension Neurological Medical History: Reports: Other - TBI 2009 Denies: Seizures Psychiatric Medical History: Reports: Depression, Post Traumatic Stress Disorder Traumatic Medical History: Reports: Traumatic Brain Injury Past Surgical History Past Surgical History: Reports: Orthopedic Surgery - LLE for compartment syndrome Social/Family History - Social History Lives with: Family Smoking Status: Current Every Day Smoker Frequency of Alcohol Use: Heavy - Medication/Allergies Home Medications: Phenylephrine HCl [Anusol Suppository] 1 supp.rect MA BID #28 supp.rect 07/22/15 Tramadol HCl 07/22/15 Acetaminophen with Codeine [Tylenol #3 Tablet] 1 each PO Q4HP PRN #14 tablet 03/08/16 Oxycodone HCl/Acetaminophen [Percocet 5-325 mg Tablet] 1 tab PO ASDIR PRN #15 tablet 11/17/17 Allergies/Adverse Reactions: No Known Allergies Allergy (Verified 11/17/17 16:23) Review of Systems ROS unobtainable: Due to endotracheal tube Physical Exam Vital Signs: Temp Pulse Resp BP Pulse Ox 97.6 F 15 106/73 100 09/12/19 23:11 09/12/19 23:11 09/12/19 23:11 09/12/19 23:11 Intake & Output 09/11/19 09/12/19 09/13/19 06:59 06:59 06:59 Intake Total 1560 Balance 1560 Weight 104 kg Weight/Height Weight 104 kg Height 6 ft 2 in General appearance: PRESENT: no acute distress, well-developed, well-nourished Head exam: PRESENT: atraumatic, normocephalic Eye exam: PRESENT: conjunctiva pink, PERRLA. ABSENT: scleral icterus Ear exam: PRESENT: normal external ear exam Mouth exam: PRESENT: moist, neck supple Neck exam: ABSENT: tracheal deviation Respiratory exam: PRESENT: decreased breath sounds - bilateral lower lobes. AB SENT: wheezes Cardiovascular exam: PRESENT: RRR, +S1, +S2 Pulses: PRESENT: normal dorsalis pedis pul Vascular exam: PRESENT: normal capillary refill GI/Abdominal exam: PRESENT: normal bowel sounds, soft. ABSENT: mass, organolmegaly Extremities exam: ABSENT: pedal edema Skin exam: PRESENT: dry, warm Tubes/Lines: PRESENT: Endotracheal Tube Laboratory/Radiographs Laboratory Results: 09/12/19 20:12 09/12/19 20:12 09/12/19 09/12/19 09/12/19 20:12 20:12 20:12 WBC 3.8 L RBC 4.49 Hgb 13.6 Hct 40.4 MCV 90 MCH 30.3 MCHC 33.7 RDW 13.2 Plt Count 207 Seg Neutrophils % 34.1 L VBG pH VBG pCO2 VBG HCO3 VBG Base Excess Sodium 144.3 Potassium 4.1 Chloride 104 Carbon Dioxide 24 Anion Gap 16 BUN 9 Creatinine 1.50 H Est GFR ( Amer) > 60 Glucose 129 H Lactic Acid 2.9 H Calcium 9.0 Total Bilirubin 0.4 AST 127 H Alkaline Phosphatase 53 Total Protein 9.2 H Albumin 4.9 TSH Urine Color Urine Appearance Urine pH Ur Specific [place] Urine Protein Urine Glucose (UA) Urine Ketones Urine Blood Urine RBC (Auto) 09/12/19 09/12/19 09/12/19 20:12 20:12 20:47 WBC RBC Hgb Hct MCV MCH MCHC RDW Plt Count Seg Neutrophils % VBG pH 7.32 VBG pCO2 49.0 VBG HCO3 24.9 VBG Base Excess -1.7 Sodium Potassium Chloride Carbon Dioxide Anion Gap BUN Creatinine Est GFR ( Amer) Glucose Lactic Acid Calcium Total Bilirubin AST Alkaline Phosphatase Total Protein Albumin TSH 0.38 L Urine Color STRAW Urine Appearance CLEAR Urine pH 6.0 Ur Specific [place] 1.005 Urine Protein 30 H Urine Glucose (UA) NEGATIVE Urine Ketones NEGATIVE Urine Blood SMALL H Urine RBC (Auto) 0 09/12/19 09/12/19 09/12/19 20:12 20:12 20:12 Creatine Kinase 705 H Troponin I < 0.012 NT-Pro-B Natriuret Pep < 11 Impressions: KUB X-Ray 09/12/19 00:00 IMPRESSION: Nonspecific bowel gas pattern. Tip of the enteric tube in the stomach. copyright 2010 [email or web address]- All Rights Reserved Head CT 09/12/19 20:45 IMPRESSION: No acute intracranial abnormality TECHNICAL DOCUMENTATION: Quality ID # [id number]: Final reports with documentation of one or more dose reduction techniques (e.g., Automated exposure control, adjustment of the mA and/or kV according to patient size, use of iterative reconstruction technique) copyright 2010 [employer] All Rights Reserved Cervical Spine CT 09/12/19 20:46 IMPRESSION: No significant findings in the cervical spine. Mild degenerative changes at C5-6. Abdomen/Pelvis CT 09/12/19 20:48 IMPRESSION: No acute intrathoracic process. No acute intra-abdominal/pelvic process. TECHNICAL DOCUMENTATION: Quality ID # [id number]: Final reports with documentation of one or more dose reduction techniques (e.g., Automated exposure control, adjustment of the mA and/or kV according to patient size, use of iterative reconstruction technique) copyright 2010 [email or web address]- All Rights Reserved Chest CT 09/12/19 20:48 IMPRESSION: No acute intrathoracic process. No acute intra-abdominal/pelvic process. TECHNICAL DOCUMENTATION: Quality ID # [id number]: Final reports with documentation of one or more dose reduction techniques (e.g., Automated exposure control, adjustment of the mA and/or kV according to patient size, use of iterative reconstruction technique) copyright 2011 [employer] All Rights Reserved Critical Time Critical Time (minutes): 60 - not including procedures -: The care of a critically ill patient is dynamic. This note represents a static moment in the admission process. Orders and treatments may be given simultaneously and urgently, and time is not field service representative of the treatment process. This patient requires Critical Care secondary to life threatening organ or limb dysfunction. Without Critical Care services, the patient is at risk for increased mortality and morbidity.
[2019-09-14] MEDS: LORAZEPAM INJ 2 MG/1 ML VIAL IV PRN (04:08)
[2019-09-14 04:13] LABS: ABSOLUTE EOSINOPHILS # (AUTO) 0.1 10^3/uL (0.0-0.6); ABSOLUTE LYMPHOCYTES (AUTO) 1.8 10^3/uL (0.5-4.7); ABSOLUTE MONOCYTES (AUTO) 0.7 10^3/uL (0.1-1.4); ABSOLUTE NEUT (AUTO) 2.1 10^3/uL (1.7-8.2); EOSINOPHILS % (AUTO) 2.8 % (0-6); HEMATOCRIT 34.1 % (37.9-51.0); HEMOGLOBIN 11.7 g/dL (13.5-17.0); LYMPHOCYTES % (AUTO) 37.3 % (13-45); MEAN CORPUSCULAR HEMOGLOBIN 30.7 pg (27.0-33.4); MEAN CORPUSCULAR HGB CONC 34.3 g/dL (32.0-36.0); MEAN CORPUSCULAR VOLUME 90 fl (80-97); MONOCYTES % (AUTO) 14.5 % (3-13); PLATELET COUNT 145 10^3/uL (150-450); RED BLOOD COUNT 3.81 10^6/uL (4.35-5.55); RED CELL DISTRIBUTION WIDTH 13.1 % (11.5-14.0); SEGMENTED NEUTROPHILS % (AUTO) 44.4 % (42-78); TOTAL CELLS COUNTED % (AUTO) 100 %; WHITE BLOOD COUNT 4.8 10^3/uL (4.0-10.5)
[2019-09-14 04:36] LABS: ANION GAP 9 (5-19); BLOOD UREA NITROGEN 12 mg/dL (7-20); CALCIUM 8.4 mg/dL (8.4-10.2); CARBON DIOXIDE 28 mmol/L (22-30); CHLORIDE 101 mmol/L (98-107); GLUCOSE 101 mg/dL (75-110); POTASSIUM 3.5 mmol/L (3.6-5.0)
[2019-09-14] MEDS: HEPARIN SOD (PORCINE) 5,000 UNIT/ML 1 ML VIAL SUBCUT SCH ×3 (05:08→21:35)
--- NOTE | 2019-09-14 09:30 | PDOC CRITICAL CARE PROG REPORT ---
General Date:: 09/14/19 - Critical Care Progress Note Resuscitation Status: Full Code Events in the past 12 to 24 Hours:: No acute overnight events. Is asleep and CPAP is in place Reason for ICU Addmission:: AMS, unresponsive, ETOH intoxication Physical Exam Vital Signs: Temp Pulse Resp BP Pulse Ox 99.2 F 84 16 146/92 H 98 09/14/19 04:00 09/14/19 08:00 09/14/19 06:00 09/14/19 05:24 09/14/19 06:00 Intake & Output 09/13/19 09/14/19 09/15/19 06:59 06:59 06:59 Intake Total 1837 1000 Output Total 2200 3245 Balance -363 -2245 Weight 105.7 kg 110.6 kg Weight/Height Weight 110.6 kg Height 6 ft 3 in General appearance: PRESENT: no acute distress, well-developed, well-nourished Head exam: PRESENT: atraumatic, normocephalic Cardiovascular exam: PRESENT: RRR GI/Abdominal exam: PRESENT: soft Extremities exam: PRESENT: other - no edema Neurological exam: PRESENT: CN II-XII grossly intact Laboratory/Radiographs Laboratory Results: 09/14/19 03:59 09/14/19 03:59 09/13/19 09/14/19 09/14/19 01:56 03:59 03:59 WBC 4.8 RBC 3.81 L Hgb 11.7 L Hct 34.1 L MCV 90 MCH 30.7 MCHC 34.3 RDW 13.1 Plt Count 145 L Seg Neutrophils % 44.4 Sodium 138.3 Potassium 3.5 L Chloride 101 Carbon Dioxide 28 Anion Gap 9 BUN 12 Creatinine 1.34 H Est GFR ( Amer) > 60 Glucose 101 Calcium 8.4 Free T4 1.08 Free T3 pg/mL 4.98 09/12/19 09/12/19 09/12/19 20:12 20:12 20:12 Creatine Kinase 705 H Troponin I < 0.012 NT-Pro-B Natriuret Pep < 11 Impressions: KUB X-Ray 09/12/19 00:00 IMPRESSION: Nonspecific bowel gas pattern. Tip of the enteric tube in the stomach. copyright 2011 [employer]- All Rights Reserved Head CT 09/12/19 20:45 IMPRESSION: No acute intracranial abnormality TECHNICAL DOCUMENTATION: Quality ID # 436: Final reports with documentation of one or more dose reduction techniques (e.g., Automated exposure control, adjustment of the mA and/or kV according to patient size, use of iterative reconstruction technique) copyright 2010 [employer]- All Rights Reserved Cervical Spine CT 09/12/19 20:46 IMPRESSION: No significant findings in the cervical spine. Mild degenerative changes at C5-6. Abdomen/Pelvis CT 09/12/19 20:48 IMPRESSION: No acute intrathoracic process. No acute intra-abdominal/pelvic process. TECHNICAL DOCUMENTATION: Quality ID # 436: Final reports with documentation of one or more dose reduction techniques (e.g., Automated exposure control, adjustment of the mA and/or kV according to patient size, use of iterative reconstruction technique) copyright 2010 [employer]- All Rights Reserved Chest CT 09/12/19 20:48 IMPRESSION: No acute intrathoracic process. No acute intra-abdominal/pelvic process. TECHNICAL DOCUMENTATION: Quality ID # [id number]: Final reports with documentation of one or more dose reduction techniques (e.g., Automated exposure control, adjustment of the mA and/or kV according to patient size, use of iterative reconstruction technique) copyright 2010 [employer]- All Rights Reserved Chest X-Ray 09/13/19 04:00 IMPRESSION: Placement of an enteric tube. Other findings are grossly stable copyright 2010 [employer]- All Rights Reserved Assessment and Plan - Diagnosis (1) Acute respiratory failure Is this a current diagnosis for this admission?: Yes (2) Alcohol intoxication Qualifiers: Complication of substance-induced condition: with unspecified complication Qualified Code(s): F10.929 - Alcohol use, unspecified with intoxication, unspecified Is this a current diagnosis for this admission?: Yes (3) PTSD (post-traumatic stress disorder) Is this a current diagnosis for this admission?: Yes (4) TBI (traumatic brain injury) Qualifiers: Encounter type: sequela Is this a current diagnosis for this admission?: Yes (5) Depression Qualifiers: Depression Type: unspecified Qualified Code(s): F32.9 - Major depressive disorder, single episode, unspecified Is this a current diagnosis for this admission?: Yes Plan Summary: Assessment: 44 yo man with acute respiratory failure due to ETOH intoxication. Pt also with h/o depression, PTSD, and TBI. Plan: 1. Respiratory: acute respiratory failure, resolved. Pt extubated 09/13. GAMALIEL, CPAP QHS 2. CV: heart rate and BP acceptable 3. Psych/Social: alcohol intoxicaton, alcohol abuse. Pt also with h/o PTSD, TBI, depression. Possible suicide attempt. Pt having episodes in which he jerks his lower extremities for a few seconds. He is not post-ictal after these episodes. I do not think these represent seizure activity. Will continue with the CIWA protocol. Continue MVI, folic acid, thiamine. Psychiatry consulted. Sitter at bedside 4. Renal: ERNESTO, resolved 5. Nutrition: regular diet 6. Prophylaxis: sq heparin 7. Stable for transfer to medical bed. Critical Time Critical Time (minutes): 0 Level of Care: TELE -: 1. The care of a critical patient is a dynamic process. This note is a financial representative synopsis but static in nature. The timeframe for treatments given in order is not necessarily the actual time these treatments may have been done. 2. This patient requires critical care secondary to ongoing requirements for therapy not offered or safe outside the critical care environment. Transfer to a lower level of care will result in altered life or limb morbidity and mor tality. 3. Multidisciplinary rounds completed. 4. ABCDE bundle addressed.
[2019-09-14] MEDS: FOLIC ACID 1 MG TABLET PO SCH (10:03)
[2019-09-14] MEDS: THIAMINE HCL 100 MG TABLET PO SCH (10:03)
[2019-09-14] MEDS: MULTIVITAMIN TABLET PO SCH (10:03)
[2019-09-14] MEDS: ACETAMINOPHEN 325 MG TABLET PO PRN ×2 (14:16→19:33)
--- NOTE | 2019-09-14 14:55 | PSYCHOLOGICAL NOTE ---
Psych Note - Psych Note Date seen by psych provider: 09/14/19 Time seen by psych provider: 12:30 Psych Note: Reason for Consult: Reported Intentional Overdose Evaluation was attempted with patient. His was just walking into visit. Patient is currently sleeping. Patient's spoke with clinician. She disclosed the patient is an alcoholic drinking daily. She continued to report that he is diagnosed with PTSD and TBI and drinks to self medicate. She confi luci he goes to the [facility] monthly for her psychiatric appointments however does not take the medications prescribed. She denies the patient engages in therapeutic services. She continued to report that the patient had taken a cab to the airport since their baby had fallen asleep. She disclosed that he had told her he remembered taking his headache medication the night before however she denies he told her he took too many. She reports that he is never verbally reported that he wanted to . She disclosed the patient has no memory of what occurred and has asked her what happened; because he is in so much pain he asked if he fell. She denies knowing any history of the patient engaging in self-harm or stating that he wanted to . Clinician spoke with patient with at bedside per patient's request Patient states that he does not understand how he was found unresponsive stating he did not drink enough that he would have passed out. He continued to report that he is diagnosed with severe PTSD and TBI that is combat related. He confirms he receives services through the [place] and states that he goes monthly to his psychiatric appointment. He states he takes medications as directed. Clinician notes patient attempts to state he receives therapy however was corrected by his . Patient recently had spoken to his provider about getting into therapy; patient has not received therapeutic services since 2017. He continued to report that this is the third time this is happened this year where he was found unresponsive or unconscious. He discussed an event that occurred previously where he was found at a gas station where he fell asleep. He reports that these events are connected to his PTSD and TBI and not to his drinking. He denies any thoughts of wanting to harm himself. When asked about comments he made to staff he reports that he he has no memory of this however if he did he would have been saying that he took his regular dose of medication. Patient confirms he was going to fly to [place] to his aunt's which is today. Patient reports that he is the primary caregiver of his young son and he would never do anything to harm himself. Patient is alert and orientated to person, place, time and circumstance. Mood is irritable with flat affect. Patient adamantly denies suicidal and homicidal ideation. Delusions are absent behaviors congruent with an intact reality based presentation ie organized and linear thought process. Thought content is guarded. eye contact is poor. As patient refuses to make eye contact with clinician. Conversational speech is low and difficult to hear at times. intellectual abilities appear to be within the average range. Attention and concentration is fair. Insight, judgment, impulse control is poor. Diagnosis Substance abuse; Alcohol, severe PTSD (combat related) per history provided by patient and TBI per history provided by patient and Medication recommendations per [facility]'s contracted psychiatrist Dr. Kulwant ARCEO are as follows Depakote 500 mg twice daily BuSpar 10 mg twice daily Impression/Plan: Patient is recommended to continued under IVC. Patient presented with a BAL of 546. Patient reported that he felt he did not drink enough to even pass out and attempts to contribute all his symptoms to his PTSD or TBI. Patient demonstrates little understanding of his severe alcohol abuse. Patient is noted to be guarded and attempts to provide misinformation on compliance of his treatment. 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 Medication recommendations have been provided. Patient will be reevaluated. Dr. Tellez was consulted to care management of this patient; attending physicians in agreement with recommendations and disposition.
[2019-09-14] MEDS ORDERED: AMITRIPTYLINE HCL 10 MG TABLET PO PRN (16:38)
[2019-09-14] MEDS: BUSPIRONE HCL 10 MG TABLET PO SCH ×2 (18:22→21:35)
[2019-09-14] MEDS: CYCLOBENZAPRINE HCL 10 MG TABLET PO SCH (18:22)
[2019-09-14] MEDS: DIVALPROEX SODIUM 500 MG TAB.SR.24H PO SCH (18:22)
[2019-09-14] MEDS ORDERED: AMITRIPTYLINE HCL 10 MG TABLET ONE (20:58)
[2019-09-14] MEDS: ATORVASTATIN CALCIUM 40 MG TABLET PO SCH (21:37)
[2019-09-15] MEDS: HEPARIN SOD (PORCINE) 5,000 UNIT/ML 1 ML VIAL SUBCUT SCH ×3 (05:18→21:21)
[2019-09-15 06:31] LABS: ABSOLUTE EOSINOPHILS # (AUTO) 0.2 10^3/uL (0.0-0.6); ABSOLUTE LYMPHOCYTES (AUTO) 1.4 10^3/uL (0.5-4.7); ABSOLUTE MONOCYTES (AUTO) 0.6 10^3/uL (0.1-1.4); ABSOLUTE NEUT (AUTO) 1.9 10^3/uL (1.7-8.2); BASOPHILS % (AUTO) 1.1 % (0-2); EOSINOPHILS % (AUTO) 4.3 % (0-6); HEMATOCRIT 36.1 % (37.9-51.0); HEMOGLOBIN 12.4 g/dL (13.5-17.0); LYMPHOCYTES % (AUTO) 34.2 % (13-45); MEAN CORPUSCULAR HEMOGLOBIN 30.8 pg (27.0-33.4); MEAN CORPUSCULAR HGB CONC 34.4 g/dL (32.0-36.0); MEAN CORPUSCULAR VOLUME 90 fl (80-97); MONOCYTES % (AUTO) 14.4 % (3-13); PLATELET COUNT 157 10^3/uL (150-450); RED BLOOD COUNT 4.03 10^6/uL (4.35-5.55); RED CELL DISTRIBUTION WIDTH 12.9 % (11.5-14.0); TOTAL CELLS COUNTED % (AUTO) 100 %; WHITE BLOOD COUNT 4.1 10^3/uL (4.0-10.5)
[2019-09-15 06:43] LABS: ANION GAP 10 (5-19); BLOOD UREA NITROGEN 11 mg/dL (7-20); CALCIUM 9.3 mg/dL (8.4-10.2); CARBON DIOXIDE 25 mmol/L (22-30); CHLORIDE 105 mmol/L (98-107); GLUCOSE 102 mg/dL (75-110); POTASSIUM 4.1 mmol/L (3.6-5.0)
[2019-09-15] MEDS: MULTIVITAMIN TABLET PO SCH (09:44)
[2019-09-15] MEDS: FOLIC ACID 1 MG TABLET PO SCH (09:44)
[2019-09-15] MEDS: BUSPIRONE HCL 10 MG TABLET PO SCH ×2 (09:44→21:20)
[2019-09-15] MEDS: CYCLOBENZAPRINE HCL 10 MG TABLET PO SCH ×2 (09:44→17:47)
[2019-09-15] MEDS: THIAMINE HCL 100 MG TABLET PO SCH (09:44)
[2019-09-15] MEDS: DIVALPROEX SODIUM 500 MG TAB.SR.24H PO SCH (13:15)
[2019-09-15] MEDS: LIDOCAINE 5% (700 MG) TRANSDERMAL ADH..PATCH TP SCH (13:16)
--- NOTE | 2019-09-15 13:21 | PDOC PROGRESS REPORT ---
Subjective Progress Note for:: 09/15/19 Subjective:: Mr. 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 Per ED reports and information obtained from , pt was on his way to [place] and was found in the airport unresponsive. EMS was called and pt was brought to the ED. He had no response to narcan trial and decision was made to intubate in the ED for airway protection. Head/neck/chest/abd/pelvis CT scan was grossly negative. reports that pt dr inks vodka and beer daily but states he attempts to hide his habit from her but hiding the large Liter vodka bottles around the house; she is unable to estimate the average amount of alcohol intake daily but states she believes he has been drinking since about 2011. He is prescribed medications for PTSD but she states he rarely takes these and prefers drinking. She denies pt complaining of pain, f eeling ill or having symptoms of illness prior to this episode. 09/15/2019. No acute events overnight. Patient resting in bed comfortably no apparent distress complaining of sore chest otherwise denies any fever, chills, nausea, vomiting, shortness of breath, anxiety, hallucination, formication, headache, nausea, vomiting, diarrhea, constipation or any urinary symptoms. Reason For Visit: AMS,ETOH INTOXICATION,ACUTE RESPIRATORY FAILURE Physical Exam Vital Signs: Temp Pulse Resp BP Pulse Ox 97.4 F 73 20 132/79 H 100 09/15/19 11:35 09/15/19 11:35 09/15/19 11:35 09/15/19 11:35 09/15/19 11:35 Intake & Output 09/14/19 09/15/19 09/16/19 06:59 06:59 06:59 Intake Total 1000 Output Total 3245 500 Balance -2245 -500 Weight 110.6 kg 102.3 kg General appearance: PRESENT: obese Head exam: PRESENT: atraumatic, normocephalic Respiratory exam: PRESENT: clear to auscultation rosenda. ABSENT: rales, rhonchi, wheezes Cardiovascular exam: PRESENT: RRR. ABSENT: diastolic murmur, rubs, systolic murmur GI/Abdominal exam: PRESENT: normal bowel sounds, soft. ABSENT: distended, guarding, mass, organolmegaly, rebound, tenderness Neurological exam: PRESENT: alert, awake, oriented to person, oriented to place, oriented to time, oriented to situation, CN II-XII grossly intact. ABSENT: motor sensory deficit Results Laboratory Results: 09/15/19 05:15 09/15/19 05:15 09/15/19 09/15/19 05:15 05:15 WBC 4.1 RBC 4.03 L Hgb 12.4 L Hct 36.1 L MCV 90 MCH 30.8 MCHC 34.4 RDW 12.9 Plt Count 157 Seg Neutrophils % 46.0 Sodium 139.8 Potassium 4.1 Chloride 105 Carbon Dioxide 25 Anion Gap 10 BUN 11 Creatinine 1.32 H Est GFR ( Amer) > 60 Glucose 102 Calcium 9.3 09/12/19 09/12/19 09/12/19 20:12 20:12 20:12 Creatine Kinase 705 H Troponin I < 0.012 NT-Pro-B Natriuret Pep < 11 Impressions: KUB X-Ray 09/12/19 00:00 IMPRESSION: Nonspecific bowel gas pattern. Tip of the enteric tube in the stomach. copyright 2010 [employer]- All Rights Reserved Head CT 09/12/19 20:45 IMPRESSION: No acute intracranial abnormality TECHNICAL DOCUMENTATION: Quality ID # 436: Final reports with documentation of one or more dose reduction techniques (e.g., Automated exposure control, adjustment of the mA and/or kV according to patient size, use of iterative reconstruction technique) copyright 2010 [employer]- All Rights Reserved Cervical Spine CT 09/12/19 20:46 IMPRESSION: No significant findings in the cervical spine. Mild degenerative changes at C5-6. Abdomen/Pelvis CT 09/12/19 20:48 IMPRESSION: No acute intrathoracic process. No acute intra-abdominal/pelvic process. TECHNICAL DOCUMENTATION: Quality ID # [id number]: Final reports with documentation of one or more dose reduction techniques (e.g., Automated exposure control, adjustment of the mA and/or kV according to patient size, use of iterative reconstruction technique) copyright 2011 [employer]- All Rights Reserved Chest CT 09/12/19 20:48 IMPRESSION: No acute intrathoracic process. No acute intra-abdominal/pelvic process. TECHNICAL DOCUMENTATION: Quality ID # [id number]: Final reports with documentation of one or more dose reduction techniques (e.g., Automated exposure control, adjustment of the mA and/or kV according to patient size, use of iterative reconstruction technique) copyright 2010 [employer]- All Rights Reserved Chest X-Ray 09/13/19 04:00 IMPRESSION: Placement of an enteric tube. Other findings are grossly stable copyright 2010 [employer]- All Rights Reserved Assessment and Plan - Diagnosis (1) Alcohol intoxication Qualifiers: Complication of substance-induced condition: with unspecified complication Qualified Code(s): F10.929 - Alcohol use, unspecified with intoxication, unspecified Is this a current diagnosis for this admission?: Yes Plan: Due to EtOH abuse complicated by combination of EtOH and benzos. Alcohol level on admission 546. Patient initially admitted to ICU where he was intubated. Extubated on 09/06/2019. Also to floor 09/14/2019. Patient does not exhibit any signs of withdrawal. All vitals WNL. Alert and oriented x3, cooperative with physical examination. Monitor for withdrawals, PRN benzodiazepines, folic acid and thiamine. Monitor for seizure and falls. Patient medically optimized to be transferred to inpatient rehab if needed. (2) Acute respiratory failure Qualifiers: Respiratory failure complication: unspecified whether with hypoxia or hypercapnia Qualified Code(s): J96.00 - Acute respiratory failure, unspecified whether with hypoxia or hypercapnia Is this a current diagnosis for this admission?: Yes Plan: Due to alcohol and benzo intoxication. Initially admitted to ICU where he was intubated. Extubated on 09/06/2019. On room air since being extubated. Vitals WNL. (3) Alcohol abuse, daily use Is this a current diagnosis for this admission?: Yes Plan: Advised on abstinence. Plan is to transfer patient to inpatient rehab as per psych recommendation. P lease refer to psych note. (4) Depression Qualifiers: Depression Type: unspecified Qualified Code(s): F32.9 - Major depressive disorder, single episode, unspecified Is this a current diagnosis for this admission?: Yes Plan: Denies any suicidal homicidal ideation. Home meds are duloxetine, amitriptyline. Restart home meds. Started on Depakote and was transferred psych recommendation. Patient plan to transfer to inpatient rehab as per psych recommendation. Please refer to note. (5) PTSD (post-traumatic stress disorder) Is this a current diagnosis for this admission?: Yes Plan: Denies any suicidal or homicidal ideation. (6) TBI (traumatic brain injury) Qualifiers: Encounter type: sequela Is this a current diagnosis for this admission?: Yes Plan: No focal neurologic deficits. Alert and oriented 3. (7) Acute kidney injury superimposed on CKD Is this a current diagnosis for this admission?: Yes Plan: History of CKD. Baseline 1.4-1.5. Creatinine back to baseline. Electrolytes WNL. Monitor volume status and electrolytes. Replace as needed. Outpatient PCP and nephrology follow-up. Avoid nephrotoxic meds.
[2019-09-15] MEDS: ACETAMINOPHEN 325 MG TABLET PO PRN (19:46)
[2019-09-15] MEDS: ATORVASTATIN CALCIUM 40 MG TABLET PO SCH (21:19)
[2019-09-16] MEDS: HEPARIN SOD (PORCINE) 5,000 UNIT/ML 1 ML VIAL SUBCUT SCH ×3 (06:30→21:39)
[2019-09-16 06:55] LABS: ALBUMIN 3.9 g/dL (3.5-5.0); ALKALINE PHOSPHATASE 62 U/L (38-126); ANION GAP 11 (5-19); ASPARTATE AMINO TRANSFERASE 105 U/L (17-59); BILIRUBIN,DIRECT 0.1 mg/dL (0.0-0.4); BILIRUBIN,TOTAL 0.4 mg/dL (0.2-1.3); BLOOD UREA NITROGEN 13 mg/dL (7-20); CALCIUM 9.6 mg/dL (8.4-10.2); CARBON DIOXIDE 23 mmol/L (22-30); CHLORIDE 105 mmol/L (98-107); GLUCOSE 102 mg/dL (75-110); TOTAL PROTEIN 7.8 g/dL (6.3-8.2)
[2019-09-16] MEDS: MULTIVITAMIN TABLET PO SCH (09:49)
[2019-09-16] MEDS: THIAMINE HCL 100 MG TABLET PO SCH (09:49)
--- NOTE | 2019-09-16 09:49 | PSYCHOLOGICAL NOTE ---
Psych Note - Psych Note Date seen by psych provider: 09/15/19 Time seen by psych provider: 14:00 - 1445 Psych Note: Reason for Consult: Reported Intentional Overdose Clinician spent 45 minutes with patient with at bedside per patient's request. Clinician discussed patient's plan of care and questions the family and patient had. All 4 [facility]'s are full; patient's information has been forwarded to [place] Diagnosis Substance abuse; Alcohol, severe PTSD (combat related) per history provided by patient and TBI per history provided by patient and Medication recommendations per [facility]'s contracted psychiatrist Dr. Kulwant ARCEO are as follows Depakote 500 mg twice daily BuSpar 10 mg twice daily Impression/Plan: Patient is recommended to continued under IVC. Patient presented with a BAL of 546. Patient reported that he felt he did not drink enough to even pass out and attempts to contribute all his symptoms to his PTSD or TBI. Patient demonstrates little understanding of his severe alcohol abuse. Patient is noted to be guarded and attempts to provide misinformation on compliance of his treatment. 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 Medication recommendations have been provided. Patient will be reevaluated. Dr. Tellez was consulted to care management of this patient; attending physicians in agreement with recommendations and disposition.
[2019-09-16] MEDS: CYCLOBENZAPRINE HCL 10 MG TABLET PO SCH ×2 (09:50→21:39)
[2019-09-16] MEDS: FOLIC ACID 1 MG TABLET PO SCH (09:50)
[2019-09-16] MEDS: BUSPIRONE HCL 10 MG TABLET PO SCH ×2 (09:52→21:39)
[2019-09-16] MEDS: DIVALPROEX SODIUM 500 MG TAB.SR.24H PO SCH (10:00)
[2019-09-16] MEDS: LIDOCAINE 5% (700 MG) TRANSDERMAL ADH..PATCH TP SCH (15:11)
--- NOTE | 2019-09-16 15:22 | PDOC PROGRESS REPORT ---
Subjective Progress Note for:: 09/16/19 Subjective:: Mr. 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 Per ED reports and information obtained from , pt was on his way to [place] and was found in the airport unresponsive. EMS was called and pt was brought to the ED. He had no response to narcan trial and decision was made to intubate in the ED for airway protection. Head/neck/chest/abd/pelvis CT scan was grossly negative. reports that pt dr inks vodka and beer daily but states he attempts to hide his habit from her but hiding the large Liter vodka bottles around the house; she is unable to estimate the average amount of alcohol intake daily but states she believes he has been drinking since about 2011. He is prescribed medications for PTSD but she states he rarely takes these and prefers drinking. She denies pt complaining of pain, f eeling ill or having symptoms of illness prior to this episode. 09/15/2019. No acute events overnight. Patient resting in bed comfortably no apparent distress complaining of sore chest otherwise denies any fever, chills, nausea, vomiting, shortness of breath, anxiety, hallucination, formication, headache, nausea, vomiting, diarrhea, constipation or any urinary symptoms. 09/16/2019. No acute events overnight. Patient alert at this time 3 cooperative with physical examination very pleasant. Anxious to be discharged today can go home. Unfortunate patient in IVC and pending transfer to inpatient psych. Reason For Visit: AMS,ETOH INTOXICATION,ACUTE RESPIRATORY FAILURE Physical Exam Vital Signs: Temp Pulse Resp BP Pulse Ox 98.2 F 73 18 132/72 H 100 09/16/19 11:51 09/16/19 11:51 09/16/19 11:51 09/16/19 11:51 09/16/19 11:51 Intake & Output 09/15/19 09/16/19 09/17/19 06:59 06:59 06:59 Intake Total 1220 480 Output Total 500 340 600 Balance -500 880 -120 Weight 102.3 kg 102.9 kg General appearance: PRESENT: no acute distress, well-developed, well-nourished Head exam: PRESENT: atraumatic, normocephalic Respiratory exam: PRESENT: clear to auscultation rosenda. ABSENT: rales, rhonchi, wheezes Cardiovascular exam: PRESENT: RRR. ABSENT: diastolic murmur, rubs, systolic murmur GI/Abdominal exam: PRESENT: normal bowel sounds, soft. ABSENT: distended, guarding, mass, organolmegaly, rebound, tenderness Neurological exam: PRESENT: alert, awake, oriented to person, oriented to place, oriented to time, oriented to situation, CN II-XII grossly intact. ABSENT: motor sensory deficit Results Laboratory Results: 09/15/19 05:15 09/16/19 05:55 09/16/19 05:55 Sodium 138.5 Potassium 4.0 Chloride 105 Carbon Dioxide 23 Anion Gap 11 BUN 13 Creatinine 1.34 H Est GFR ( Amer) > 60 Glucose 102 Calcium 9.6 Total Bilirubin 0.4 AST 105 H Alkaline Phosphatase 62 Total Protein 7.8 Albumin 3.9 09/12/19 09/12/19 09/12/19 20:12 20:12 20:12 Creatine Kinase 705 H Troponin I < 0.012 NT-Pro-B Natriuret Pep < 11 Impressions: KUB X-Ray 09/12/19 00:00 IMPRESSION: Nonspecific bowel gas pattern. Tip of the enteric tube in the stomach. copyright 2010 [employer]- All Rights Reserved Head CT 09/12/19 20:45 IMPRESSION: No acute intracranial abnormality TECHNICAL DOCUMENTATION: Quality ID # 436: Final reports with documentation of one or more dose reduction techniques (e.g., Automated exposure control, adjustment of the mA and/or kV according to patient size, use of iterative reconstruction technique) copyright 2010 [employer]- All Rights Reserved Cervical Spine CT 09/12/19 20:46 IMPRESSION: No significant findings in the cervical spine. Mild degenerative changes at C5-6. Abdomen/Pelvis CT 09/12/19 20:48 IMPRESSION: No acute intrathoracic process. No acute intra-abdominal/pelvic process. TECHNICAL DOCUMENTATION: Quality ID # 436: Final reports with documentation of one or more dose reduction techniques (e.g., Automated exposure control, adjustment of the mA and/or kV according to patient size, use of iterative reconstruction technique) copyright 2010 [employer]- All Rights Reserved Chest CT 09/12/19 20:48 IMPRESSION: No acute intrathoracic process. No acute intra-abdominal/pelvic process. TECHNICAL DOCUMENTATION: Quality ID # [id number]: Final reports with documentation of one or more dose reduction techniques (e.g., Automated exposure control, adjustment of the mA and/or kV according to patient size, use of iterative reconstruction technique) copyright 2010 [employer]- All Rights Reserved Chest X-Ray 09/13/19 04:00 IMPRESSION: Placement of an enteric tube. Other findings are grossly stable copyright 2010 [employer]- All Rights Reserved Assessment and Plan - Diagnosis (1) Alcohol intoxication Qualifiers: Complication of substance-induced condition: with unspecified complication Qualified Code(s): F10.929 - Alcohol use, unspecified with intoxication, unspecified Is this a current diagnosis for this admission?: Yes Plan: Alert and oriented x3. Denies any visual or auditory hallucinations. Vitals are WNL. Due to EtOH abuse complicated by combination of EtOH and benzos. Alcohol level on admission 546. Patient initially admitted to ICU where he was intubated. Extubated on 09/06/2019. Also to floor 09/14/2019. Monitor for withdrawals, PRN benzodiazepines, folic acid and thiamine. Monitor for seizure and falls. Patient medically optimized to be transferred to inpatient rehab if needed. (2) Acute respiratory failure Qualifiers: Respiratory failure complication: unspecified whether with hypoxia or hypercapnia Qualified Code(s): J96.00 - Acute respiratory failure, unspecified whether with hypoxia or hypercapnia Is this a current diagnosis for this admission?: Yes Plan: Resolved. SPO2 WNL on RA. Due to alcohol and benzo intoxication. Initially admitted to ICU where he was intubated. Extubated on 09/06/2019. (3) Alcohol abuse, daily use Is this a current diagnosis for this admission?: Yes Plan: Advised on abstinence. Plan is to transfer patient to inpatient rehab as per psych recommendation. Please refer to psych note. (4) Depression Qualifiers: Depression Type: unspecified Qualified Code(s): F32.9 - Major depressive disorder, single episode, unspecified Is this a current diagnosis for this admission?: Yes Plan: Denies any suicidal homicidal ideation. Home meds are duloxetine, amitriptyline. Restart home meds. Started on Depakote and was transferred psych recommendation. Patient plan to transfer to inpatient rehab as per psych recommendation. Please refer to note. (5) PTSD (post-traumatic stress disorder) Is this a current diagnosis for this admission?: Yes Plan: Denies any suicidal or homicidal ideation. (6) TBI (traumatic brain injury) Qualifiers: Encounter type: sequela Is this a current diagnosis for this admission?: Yes Plan: No focal neurologic deficits. Alert and oriented 3. (7) Acute kidney injury superimposed on CKD Is this a current diagnosis for this admission?: Yes Plan: Kidney function back to baseline. Electrolytes WNL. History of CKD. Baseline 1.4-1.5. Monitor volume status and electrolytes. Replace as needed. Outpatient PCP and nephrology follow-up. Avoid nephrotoxic meds.
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
[2019-09-16] MEDS: ATORVASTATIN CALCIUM 20 MG TABLET PO SCH (21:39)
[2019-09-17] MEDS: HEPARIN SOD (PORCINE) 5,000 UNIT/ML 1 ML VIAL SUBCUT SCH ×3 (05:21→23:16)
[2019-09-17] MEDS: MULTIVITAMIN TABLET PO SCH (09:41)
[2019-09-17] MEDS: CYCLOBENZAPRINE HCL 10 MG TABLET PO SCH ×2 (09:41→18:35)
[2019-09-17] MEDS: THIAMINE HCL 100 MG TABLET PO SCH (09:41)
[2019-09-17] MEDS: FOLIC ACID 1 MG TABLET PO SCH (09:41)
[2019-09-17] MEDS: BUSPIRONE HCL 10 MG TABLET PO SCH ×2 (09:41→23:17)
[2019-09-17] MEDS: LIDOCAINE 5% (700 MG) TRANSDERMAL ADH..PATCH TP SCH (09:42)
[2019-09-17] MEDS: DIVALPROEX SODIUM 500 MG TAB.SR.24H PO SCH (10:26)
--- NOTE | 2019-09-17 15:23 | PDOC PROGRESS REPORT ---
Subjective Progress Note for:: 09/17/19 Subjective:: Mr. 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 Per ED reports and information obtained from , pt was on his way to [place] and was found in the airport unresponsive. EMS was called and pt was brought to the ED. He had no response to narcan trial and decision was made to intubate in the ED for airway protection. Head/neck/chest/abd/pelvis CT scan was grossly negative. reports that pt dr inks vodka and beer daily but states he attempts to hide his habit from her but hiding the large Liter vodka bottles around the house; she is unable to estimate the average amount of alcohol intake daily but states she believes he has been drinking since about 2011. He is prescribed medications for PTSD but she states he rarely takes these and prefers drinking. She denies pt complaining of pain, f eeling ill or having symptoms of illness prior to this episode. 09/15/2019. No acute events overnight. Patient resting in bed comfortably no apparent distress complaining of sore chest otherwise denies any fever, chills, nausea, vomiting, shortness of breath, anxiety, hallucination, formication, headache, nausea, vomiting, diarrhea, constipation or any urinary symptoms. 09/16/2019. No acute events overnight. Patient alert at this time 3 cooperative with physical examination very pleasant. Anxious to be discharged today can go home. Unfortunate patient in IVC and pending transfer to inpatient psych. 09/17/2019. No acute events overnight. Saw patient this afternoon, accompanied by his , in no apparent distress, patient very frustrated about his IVC status and very anxious to be released soon. Reason For Visit: AMS,ETOH INTOXICATION,ACUTE RESPIRATORY FAILURE Physical Exam Vital Signs: Temp Pulse Resp BP Pulse Ox 97.8 F 87 17 113/76 96 09/17/19 11:56 09/17/19 11:56 09/17/19 11:56 09/17/19 11:56 09/17/19 11:56 Intake & Output 09/16/19 09/17/19 09/18/19 06:59 06:59 06:59 Intake Total 1220 600 620 Output Total 340 600 Balance 880 0 620 Weight 102.9 kg 105.7 kg General appearance: PRESENT: no acute distress, well-developed, well-nourished Head exam: PRESENT: atraumatic, normocephalic Respiratory exam: PRESENT: clear to auscultation rosenda. ABSENT: rales, rhonchi, wheezes Cardiovascular exam: PRESENT: RRR. ABSENT: diastolic murmur, rubs, systolic murmur Neurological exam: PRESENT: alert, awake, oriented to person, oriented to place, oriented to time, oriented to situation, CN II-XII grossly intact. ABSENT: motor sensory deficit Results Laboratory Results: 09/15/19 05:15 09/16/19 05:55 09/12/19 09/12/19 09/12/19 20:12 20:12 20:12 Creatine Kinase 705 H Troponin I < 0.012 NT-Pro-B Natriuret Pep < 11 Impressions: KUB X-Ray 09/12/19 00:00 IMPRESSION: Nonspecific bowel gas pattern. Tip of the enteric tube in the stomach. copyright 2010 [employer]- All Rights Reserved Head CT 09/12/19 20:45 IMPRESSION: No acute intracranial abnormality TECHNICAL DOCUMENTATION: Quality ID # 436: Final reports with documentation of one or more dose reduction techniques (e.g., Automated exposure control, adjustment of the mA and/or kV according to patient size, use of iterative reconstruction technique) copyright 2010 [employer] All Rights Reserved Cervical Spine CT 09/12/19 20:46 IMPRESSION: No significant findings in the cervical spine. Mild degenerative changes at C5-6. Abdomen/Pelvis CT 09/12/19 20:48 IMPRESSION: No acute intrathoracic process. No acute intra-abdominal/pelvic process. TECHNICAL DOCUMENTATION: Quality ID # 436: Final reports with documentation of one or more dose reduction techniques (e.g., Automated exposure control, adjustment of the mA and/or kV according to patient size, use of iterative reconstruction technique) copyright 2010 [employer] All Rights Reserved Chest CT 09/12/19 20:48 IMPRESSION: No acute intrathoracic process. No acute intra-abdominal/pelvic process. TECHNICAL DOCUMENTATION: Quality ID # 436: Final reports with documentation of one or more dose reduction techniques (e.g., Automated exposure control, adjustment of the mA and/or kV according to patient size, use of iterative reconstruction technique) copyright 2010 [employer]- All Rights Reserved Chest X-Ray 09/13/19 04:00 IMPRESSION: Placement of an enteric tube. Other findings are grossly stable copyright 2010 [employer]- All Rights Reserved Assessment and Plan - Diagnosis (1) Alcohol intoxication Qualifiers: Complication of substance-induced condition: with unspecified complication Qualified Code(s): F10.929 - Alcohol use, unspecified with intoxication, unspecified Is this a current diagnosis for this admission?: Yes Plan: Alert and oriented x3. Denies any visual or auditory hallucinations. Vitals are WNL. Due to EtOH abuse complicated by combination of EtOH and benzos. Alcohol level on admission 546. Patient initially admitted to ICU where he was intubated. Extubated on 09/06/2019. Also to floor 09/14/2019. Monitor for withdrawals, PRN benzodiazepines, folic acid and thiamine. Monitor for seizure and falls. Patient medically optimized to be transferred to inpatient rehab if needed. (2) Acute respiratory failure Qualifiers: Respiratory failure complication: unspecified whether with hypoxia or hypercapnia Qualified Code(s): J96.00 - Acute respiratory failure, unspecified whether with hypoxia or hypercapnia Is this a current diagnosis for this admission?: Yes Plan: Resolved. SPO2 WNL on RA. Due to alcohol and benzo intoxication. Initially admitted to ICU where he was intubated. Extubated on 09/06/2019. (3) Alcohol abuse, daily use Is this a current diagnosis for this admission?: Yes Plan: Advised on abstinence. Plan is to transfer patient to inpatient rehab as per psych recommendation. Please refer to psych note. (4) Depression Qualifiers: Depression Type: unspecified Qualified Code(s): F32.9 - Major depressive disorder, single episode, unspecified Is this a current diagnosis for this admission?: Yes Plan: Denies any suicidal homicidal ideation. Home meds are duloxetine, amitriptyline. Restart home meds. Started on Depakote and was transferred psych recommendation. Patient plan to transfer to inpatient rehab as per psych recommendation. Please refer to note. (5) PTSD (post-traumatic stress disorder) Is this a current diagnosis for this admission?: Yes Plan: Denies any suicidal or homicidal ideation. (6) TBI (traumatic brain injury) Qualifiers: Encounter type: sequela Is this a current diagnosis for this admission?: Yes Plan: No focal neurologic deficits. Alert and oriented 3. (7) Acute kidney injury superimposed on CKD Is this a current diagnosis for this admission?: Yes Plan: Kidney function back to baseline. Electrolytes WNL. History of CKD. Baseline 1.4-1.5. Monitor volume status and electrolytes. Replace as needed. Outpatient PCP and nephrology follow-up. Avoid nephrotoxic meds.
--- NOTE | 2019-09-17 18:06 | PDOC CONSULTATION ---
Consultation-Blank Consultation: Talked with both patient and his regarding the reason for initial and continued involuntary commitment. 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 This Clinician discussed the data points of reports, labs, and other objective findings as well as clinical research and experience and that to move forward with a quality of life the patient is likely to improve with a structured treatment program that will provide a different way of thinking and more adaptive, healthier coping skills. 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 He reported he was going to see if psychiatrist regularly but when asked what the point to going was since he did not take his medications as prescribed, the patient could not answer. While reviewing the patient chart a note from discharge planning dated today revealed [facility] since [facility] was considered "too medically advanced" for their setting. The note indicated placement should be sought at other inpatient psychiatric facilities. Given the above information, coordination with the attending physician will be needed to determine the exact nature of the medical disposition and / or problem before sending the psychiatric placement packets out to other facilities. Medication recommendation from consulting psychiatric provider: 1. discontinue ativan Impression / Plan: Patient to continue on IVC. Coordination with attending physician to determine exact medical disposition. Re-send behavioral health packets to psych facilities once determined patient is medically cleared. Continie to work with discharge planning regarding the ongoing status and discharge of this patient. Please contact the behavioral health office for questions regarding the IVC or regarding this patient.
[2019-09-17] MEDS: ATORVASTATIN CALCIUM 20 MG TABLET PO SCH (23:17)
[2019-09-18] MEDS: HEPARIN SOD (PORCINE) 5,000 UNIT/ML 1 ML VIAL SUBCUT SCH ×3 (06:15→21:10)
[2019-09-18] MEDS: BUSPIRONE HCL 10 MG TABLET PO SCH ×2 (09:49→21:07)
[2019-09-18] MEDS: CYCLOBENZAPRINE HCL 10 MG TABLET PO SCH ×2 (09:49→17:32)
[2019-09-18] MEDS: MULTIVITAMIN TABLET PO SCH (09:49)
[2019-09-18] MEDS: FOLIC ACID 1 MG TABLET PO SCH (09:49)
[2019-09-18] MEDS: THIAMINE HCL 100 MG TABLET PO SCH (09:49)
[2019-09-18] MEDS: LIDOCAINE 5% (700 MG) TRANSDERMAL ADH..PATCH TP SCH (09:52)
[2019-09-18 11:20] LABS: ANION GAP 11 (5-19); BLOOD UREA NITROGEN 12 mg/dL (7-20); CALCIUM 9.4 mg/dL (8.4-10.2); CARBON DIOXIDE 25 mmol/L (22-30); CHLORIDE 103 mmol/L (98-107); GLUCOSE 112 mg/dL (75-110); POTASSIUM 3.6 mmol/L (3.6-5.0)
[2019-09-18] MEDS: DIVALPROEX SODIUM 500 MG TAB.SR.24H PO SCH (11:24)
--- NOTE | 2019-09-18 12:48 | PDOC PROGRESS REPORT ---
Subjective Progress Note for:: 09/18/19 Subjective:: Mr. 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 Per ED reports and information obtained from , pt was on his way to [place] and was found in the airport unresponsive. EMS was called and pt was brought to the ED. He had no response to narcan trial and decision was made to intubate in the ED for airway protection. Head/neck/chest/abd/pelvis CT scan was grossly negative. reports that pt dr inks vodka and beer daily but states he attempts to hide his habit from her but hiding the large Liter vodka bottles around the house; she is unable to estimate the average amount of alcohol intake daily but states she believes he has been drinking since about 2011. He is prescribed medications for PTSD but she states he rarely takes these and prefers drinking. She denies pt complaining of pain, f eeling ill or having symptoms of illness prior to this episode. 09/15/2019. No acute events overnight. Patient resting in bed comfortably no apparent distress complaining of sore chest otherwise denies any fever, chills, nausea, vomiting, shortness of breath, anxiety, hallucination, formication, headache, nausea, vomiting, diarrhea, constipation or any urinary symptoms. 09/16/2019. No acute events overnight. Patient alert at this time 3 cooperative with physical examination very pleasant. Anxious to be discharged today can go home. Unfortunate patient in IVC and pending transfer to inpatient psych. 09/17/2019. No acute events overnight. Saw patient this afternoon, accompanied by his , in no apparent distress, patient very frustrated about his IVC status and very anxious to be released soon. 09/18/2019. No acute events overnight. Saw patient this morning. Comfortable resting in bed. Denies any fever, chills, nausea, vomiting, diarrhea, constipation or any urinary symptoms. P.o. tolerant, having normal bowel and bladder movement. Very anxious to be discharged. Reason For Visit: AMS,ETOH INTOXICATION,ACUTE RESPIRATORY FAILURE Physical Exam Vital Signs: Temp Pulse Resp BP Pulse Ox 98.5 F 89 18 109/60 99 09/18/19 12:03 09/18/19 12:03 09/18/19 12:03 09/18/19 12:03 09/18/19 12:03 Intake & Output 09/17/19 09/18/19 09/19/19 06:59 06:59 06:59 Intake Total 600 1100 Output Total 600 Balance 0 1100 Weight 105.7 kg 106.1 kg General appearance: PRESENT: no acute distress, well-developed, well-nourished Head exam: PRESENT: atraumatic, normocephalic Respiratory exam: PRESENT: clear to auscultation rosenda. ABSENT: rales, rhonchi, wheezes Cardiovascular exam: PRESENT: RRR. ABSENT: diastolic murmur, rubs, systolic murmur GI/Abdominal exam: PRESENT: normal bowel sounds, soft. ABSENT: distended, guarding, mass, organolmegaly, rebound, tenderness Neurological exam: PRESENT: alert, awake, oriented to person, oriented to place, oriented to time, oriented to situation, CN II-XII grossly intact. ABSENT: motor sensory deficit Results Laboratory Results: 09/15/19 05:15 09/18/19 10:56 09/18/19 10:56 Sodium 138.6 Potassium 3.6 Chloride 103 Carbon Dioxide 25 Anion Gap 11 BUN 12 Creatinine 1.40 H Est GFR ( Amer) > 60 Glucose 112 H Calcium 9.4 09/12/19 20:47 Blood Blood Culture - Final NO GROWTH IN 5 DAYS 09/12/19 20:30 Blood Blood Culture - Final NO GROWTH IN 5 DAYS 09/12/19 09/12/19 09/12/19 20:12 20:12 20:12 Creatine Kinase 705 H Troponin I < 0.012 NT-Pro-B Natriuret Pep < 11 Impressions: KUB X-Ray 09/12/19 00:00 IMPRESSION: Nonspecific bowel gas pattern. Tip of the enteric tube in the stomach. copyright 2010 [employer]- All Rights Reserved Head CT 09/12/19 20:45 IMPRESSION: No acute intracranial abnormality TECHNICAL DOCUMENTATION: Quality ID # 436: Final reports with documentation of one or more dose reduction techniques (e.g., Automated exposure control, adjustment of the mA and/or kV according to patient size, use of iterative reconstruction technique) copyright 2010 [employer]- All Rights Reserved Cervical Spine CT 09/12/19 20:46 IMPRESSION: No significant findings in the cervical spine. Mild degenerative changes at C5-6. Abdomen/Pelvis CT 09/12/19 20:48 IMPRESSION: No acute intrathoracic process. No acute intra-abdominal/pelvic process. TECHNICAL DOCUMENTATION: Quality ID # 436: Final reports with documentation of one or more dose reduction techniques (e.g., Automated exposure control, adjustment of the mA and/or kV according to patient size, use of iterative reconstruction technique) copyright 2010 [employer]- All Rights Reserved Chest CT 09/12/19 20:48 IMPRESSION: No acute intrathoracic process. No acute intra-abdominal/pelvic process. TECHNICAL DOCUMENTATION: Quality ID # [id number]: Final reports with documentation of one or more dose reduction techniques (e.g., Automated exposure control, adjustment of the mA and/or kV according to patient size, use of iterative reconstruction technique) copyright 2010 [employer]- All Rights Reserved Chest X-Ray 09/13/19 04:00 IMPRESSION: Placement of an enteric tube. Other findings are grossly stable copyright 2010 [employer]- All Rights Reserved Assessment and Plan - Diagnosis (1) Alcohol intoxication Qualifiers: Complication of substance-induced condition: with unspecified complication Qualified Code(s): F10.929 - Alcohol use, unspecified with intoxication, unspecified Is this a current diagnosis for this admission?: Yes Plan: Alert and oriented x3. Denies any visual or auditory hallucinations. Vitals are WNL. Due to EtOH abuse complicated by combination of EtOH and benzos. Alcohol level on admission 546. Patient initially admitted to ICU where he was intubated. Extubated on 09/06/2019. Also to floor 09/14/2019. Monitor for withdrawals, PRN benzodiazepines, folic acid and thiamine. Monitor for seizure and falls. Patient medically optimized to be transferred to inpatient rehab if needed. (2) Acute respiratory failure Qualifiers: Respiratory failure complication: unspecified whether with hypoxia or hypercapnia Qualified Code(s): J96.00 - Acute respiratory failure, unspecified whether with hypoxia or hypercapnia Is this a current diagnosis for this admission?: Yes Plan: Resolved. SPO2 WNL on RA. Due to alcohol and benzo intoxication. Initially admitted to ICU where he was intubated. Extubated on 09/06/2019. (3) Alcohol abuse, daily use Is this a current diagnosis for this admission?: Yes Plan: Advised on abstinence. Plan is to transfer patient to inpatient rehab as per psych recommendation. Please refer to psych note. (4) Depression Qualifiers: Depression Type: unspecified Qualified Code(s): F32.9 - Major depressive disorder, single episode, unspecified Is this a current diagnosis for this admission?: Yes Plan: Denies any suicidal homicidal ideation. Home meds are duloxetine, amitriptyline. Restart home meds. Started on Depakote and was transferred psych recommendation. Patient plan to transfer to inpatient rehab as per psych recommendation. Please refer to note. (5) PTSD (post-traumatic stress disorder) Is this a current diagnosis for this admission?: Yes Plan: Denies any suicidal or homicidal ideation. (6) TBI (traumatic brain injury) Qualifiers: Encounter type: sequela Is this a current diagnosis for this admission?: Yes Plan: No focal neurologic deficits. Alert and oriented 3. (7) Acute kidney injury superimposed on CKD Is this a current diagnosis for this admission?: Yes Plan: Resolved. Back to baseline. History of CKD. Patient is making adequate amount of urine. All electrolytes are WNL. Patient is not volume overloaded. Denies any uremic symptoms. Patient has history of CKD and as per chart review patient's creatinine was 1.39 on 05/09/2011 and has been stable since then. Monitor volume status and electrolytes. Replace as needed. Outpatient PCP and nephrology follow-up. Avoid nephrotoxic meds.
[2019-09-18] MEDS: ATORVASTATIN CALCIUM 20 MG TABLET PO SCH (21:07)
[2019-09-18] MEDS ORDERED: (PENDING PHARMACY ID) (Prazosin Hcl [Minipress] 1 MG) PO SCH (22:00)
[2019-09-19] MEDS: HEPARIN SOD (PORCINE) 5,000 UNIT/ML 1 ML VIAL SUBCUT SCH ×3 (05:11→22:51)
[2019-09-19] MEDS: THIAMINE HCL 100 MG TABLET PO SCH (11:13)
[2019-09-19] MEDS: MULTIVITAMIN TABLET PO SCH (11:13)
[2019-09-19] MEDS: FOLIC ACID 1 MG TABLET PO SCH (11:13)
[2019-09-19] MEDS: DIVALPROEX SODIUM 500 MG TAB.SR.24H PO SCH (11:13)
[2019-09-19] MEDS: CYCLOBENZAPRINE HCL 10 MG TABLET PO SCH ×2 (11:14→17:28)
[2019-09-19] MEDS: BUSPIRONE HCL 10 MG TABLET PO SCH ×2 (11:14→22:50)
[2019-09-19] MEDS: LIDOCAINE 5% (700 MG) TRANSDERMAL ADH..PATCH TP SCH (11:15)
--- NOTE | 2019-09-19 13:14 | PDOC PROGRESS REPORT ---
Subjective Progress Note for:: 09/19/19 Subjective:: Mr. 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 Per ED reports and information obtained from , pt was on his way to [place] and was found in the airport unresponsive. EMS was called and pt was brought to the ED. He had no response to narcan trial and decision was made to intubate in the ED for airway protection. Head/neck/chest/abd/pelvis CT scan was grossly negative. reports that pt dr inks vodka and beer daily but states he attempts to hide his habit from her but hiding the large Liter vodka bottles around the house; she is unable to estimate the average amount of alcohol intake daily but states she believes he has been drinking since about 2011. He is prescribed medications for PTSD but she states he rarely takes these and prefers drinking. She denies pt complaining of pain, f eeling ill or having symptoms of illness prior to this episode. 09/15/2019. No acute events overnight. Patient resting in bed comfortably no apparent distress complaining of sore chest otherwise denies any fever, chills, nausea, vomiting, shortness of breath, anxiety, hallucination, formication, headache, nausea, vomiting, diarrhea, constipation or any urinary symptoms. 09/16/2019. No acute events overnight. Patient alert at this time 3 cooperative with physical examination very pleasant. Anxious to be discharged today can go home. Unfortunate patient in IVC and pending transfer to inpatient psych. 09/17/2019. No acute events overnight. Saw patient this afternoon, accompanied by his , in no apparent distress, patient very frustrated about his IVC status and very anxious to be released soon. 09/18/2019. No acute events overnight. Saw patient this morning. Comfortable resting in bed. Denies any fever, chills, nausea, vomiting, diarrhea, constipation or any urinary symptoms. P.o. tolerant, having normal bowel and bladder movement. Very anxious to be discharged. 09/19/2019. No acute events overnight. Patient resting comfortably. Denies any fever, chills, nausea, vomiting, diarrhea, constipation or any urinary symptoms. Alert and oriented x4. Very anxious to be discharged home or transfer to inpatient rehab. Reason For Visit: AMS,ETOH INTOXICATION,ACUTE RESPIRATORY FAILURE Physical Exam Vital Signs: Temp Pulse Resp BP Pulse Ox 98.3 F 84 18 114/75 98 09/19/19 11:48 09/19/19 11:48 09/19/19 11:48 09/19/19 11:48 09/19/19 11:48 Intake & Output 09/18/19 09/19/19 09/20/19 06:59 06:59 06:59 Intake Total 1100 2030 Balance 1100 2030 Weight 106.1 kg 106 kg General appearance: PRESENT: obese Head exam: PRESENT: atraumatic, normocephalic Respiratory exam: PRESENT: clear to auscultation rosenda. ABSENT: rales, rhonchi, wheezes Cardiovascular exam: PRESENT: RRR. ABSENT: diastolic murmur, rubs, systolic murmur GI/Abdominal exam: PRESENT: normal bowel sounds, soft. ABSENT: distended, guarding, mass, organolmegaly, rebound, tenderness Neurological exam: PRESENT: alert, awake, oriented to person, oriented to place, oriented to time, oriented to situation, CN II-XII grossly intact. ABSENT: motor sensory deficit Results Laboratory Results: 09/15/19 05:15 09/18/19 10:56 09/12/19 09/12/19 09/12/19 20:12 20:12 20:12 Creatine Kinase 705 H Troponin I < 0.012 NT-Pro-B Natriuret Pep < 11 Impressions: KUB X-Ray 09/12/19 00:00 IMPRESSION: Nonspecific bowel gas pattern. Tip of the enteric tube in the stomach. copyright 2010 [employer]- All Rights Reserved Head CT 09/12/19 20:45 IMPRESSION: No acute intracranial abnormality TECHNICAL DOCUMENTATION: Quality ID # 436: Final reports with documentation of one or more dose reduction techniques (e.g., Automated exposure control, adjustment of the mA and/or kV according to patient size, use of iterative reconstruction technique) copyright 2011 [employer]- All Rights Reserved Cervical Spine CT 09/12/19 20:46 IMPRESSION: No significant findings in the cervical spine. Mild degenerative changes at C5-6. Abdomen/Pelvis CT 09/12/19 20:48 IMPRESSION: No acute intrathoracic process. No acute intra-abdominal/pelvic process. TECHNICAL DOCUMENTATION: Quality ID # 436: Final reports with documentation of one or more dose reduction techniques (e.g., Automated exposure control, adjustment of the mA and/or kV according to patient size, use of iterative reconstruction technique) copyright 2010 [employer]- All Rights Reserved Chest CT 09/12/19 20:48 IMPRESSION: No acute intrathoracic process. No acute intra-abdominal/pelvic process. TECHNICAL DOCUMENTATION: Quality ID # [id number]: Final reports with documentation of one or more dose reduction techniques (e.g., Automated exposure control, adjustment of the mA and/or kV according to patient size, use of iterative reconstruction technique) copyright 2010 [employer]- All Rights Reserved Chest X-Ray 09/13/19 04:00 IMPRESSION: Placement of an enteric tube. Other findings are grossly stable copyright 2010 [employer]- All Rights Reserved Assessment and Plan - Diagnosis (1) Alcohol intoxication Qualifiers: Complication of substance-induced condition: with unspecified complication Qualified Code(s): F10.929 - Alcohol use, unspecified with intoxication, unspecified Is this a current diagnosis for this admission?: Yes Plan: Alert and oriented x3. Denies any visual or auditory hallucinations. Vitals are WNL. Due to EtOH abuse complicated by combination of EtOH and benzos. Alcohol level on admission 546. Patient initially admitted to ICU where he was intubated. Extubated on 09/06/2019. Also to floor 09/14/2019. Monitor for withdrawals, PRN benzodiazepines, folic acid and thiamine. Monitor for seizure and falls. Patient medically optimized to be transferred to inpatient rehab if needed. Note: I was asked by our psych department to do a [facility] peer [facility] with Dr. Anders and Dr Garza as there was a question of his alcohol withdrawal. I talked both to Dr. Anders and Dr. Garza and updated them about the fact t hat patient was not actively withdrawing or showing any sign of EtOH withdrawal. I updated them that patient is alert and oriented x4 and all his vitals are stable. Patient was admitted on 09/12/2019, transferred to ICU and downgraded to floor on 09/14/2019 and has not received any benzos since then. (2) Acute respiratory failure Qualifiers: Respiratory failure complication: unspecified whether with hypoxia or hypercapnia Qualified Code(s): J96.00 - Acute respiratory failure, unspecified whether with hypoxia or hypercapnia Is this a current diagnosis for this admission?: Yes Plan: Resolved. SPO2 WNL on RA. Due to alcohol and benzo intoxication. Initially admitted to ICU where he was intubated. Extubated on 09/06/2019. (3) Alcohol abuse, daily use Is this a current diagnosis for this admission?: Yes Plan: Advised on abstinence. Plan is to transfer patient to inpatient rehab as per psych recommendation. Please refer to psych note. (4) Depression Qualifiers: Depression Type: unspecified Qualified Code(s): F32.9 - Major depressive disorder, single episode, unspecified Is this a current diagnosis for this admission?: Yes Plan: Denies any suicidal homicidal ideation. Home meds are duloxetine, amitriptyline. Restart home meds. Started on Depakote and was transferred psych recommendation. Patient plan to transfer to inpatient rehab as per psych recommendation. Please refer to note. (5) PTSD (post-traumatic stress disorder) Is this a current diagnosis for this admission?: Yes Plan: Denies any suicidal or homicidal ideation. (6) TBI (traumatic brain injury) Qualifiers: Encounter type: sequela Is this a current diagnosis for this admission?: Yes Plan: No focal neurologic deficits. Alert and oriented 3. (7) Acute kidney injury superimposed on CKD Is this a current diagnosis for this admission?: Yes Plan: Resolved. Back to baseline. History of CKD. Patient is making adequate amount of urine. All electrolytes are WNL. Patient is not volume overloaded. Denies any uremic symptoms. Patient has history of CKD and as per chart review patient's creatinine was 1.39 on 05/09/2011 and has been stable since then. Monitor volume status and electrolytes. Replace as needed. Outpatient PCP and nephrology follow-up. Avoid nephrotoxic meds.
--- NOTE | 2019-09-19 18:12 | PDOC DISCHARGE SUMMARY ---
Impression - Admit/DC Date/PCP Admission Date/Primary Care Provider: 09/12/19 22:59 Discharge Date: 09/19/19 - Discharge Diagnosis (1) Alcohol intoxication Is this a current diagnosis for this admission?: Yes (2) Acute respiratory failure Is this a current diagnosis for this admission?: Yes (3) Alcohol abuse, daily use Is this a current diagnosis for this admission?: Yes (4) Depression Is this a current diagnosis for this admission?: Yes (5) PTSD (post-traumatic stress disorder) Is this a current diagnosis for this admission?: Yes (6) TBI (traumatic brain injury) Is this a current diagnosis for this admission?: Yes (7) Acute kidney injury superimposed on CKD Is this a current diagnosis for this admission?: Yes - Additional Information Resuscitation Status: Full Code Referrals: [facility] [Provider Group] Prescriptions: Buspirone HCl [Buspar 10 mg Tablet] 10 mg PO Q12 30 Days #60 tablet Divalproex Sodium [Depakote ER 500 mg Tab.sr] 500 mg PO ACLUNCH 30 Days #30 tab.sr.24h Home Medications: Amitriptyline HCl [Elavil 10 mg Tablet] 10 mg PO HSP PRN 09/13/19 Atorvastatin Calcium [Lipitor 40 mg Tablet] 20 mg PO QHS 09/13/19 Cyclobenzaprine HCl [Flexeril 10 mg Tablet] 10 mg PO BID 09/13/19 Duloxetine HCl [Cymbalta 30 mg Capsule.dr] 90 mg PO DAILY 09/13/19 Duloxetine HCl [Cymbalta] 60 mg PO DAILY 09/13/19 Prazosin HCl [Minipress] 1 mg PO QHS 09/13/19 Tizanidine HCl 4 mg PO HSP PRN 09/13/19 Buspirone HCl [Buspar 10 mg Tablet] 10 mg PO Q12 30 Days #60 tablet 09/19/19 Divalproex Sodium [Depakote ER 500 mg Tab.sr] 500 mg PO ACLUNCH 30 Days #30 tab.sr.24h 09/19/19 History of Present Illiness History of Present Illness: Mr. 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 Per ED reports and information obtained from , pt was on his way to [place] and was found in the airport unresponsive. EMS was called and pt was brought to the ED. He had no response to narcan trial and decision was made to intubate in the ED for airway protection. Head/neck/chest/abd/pelvis CT scan was grossly negative. reports that pt drinks vodka and beer daily but states he attempts to hide his habit from her but hiding the large Liter vodka bottles around the house; she is unable to estimate the average amount of alcohol intake daily but states she believes he has been drinking since about 2011. He is prescribed medications for PTSD but she states he rarely takes these and prefers drinking. She denies pt complaining of pain, feeling ill or having symptoms of illness prior to this episode. Hospital Course Hospital Course: (1) Alcohol intoxication Alert and oriented x3. Denies any visual or auditory hallucinations. Vitals a re WNL. Due to EtOH abuse complicated by combination of EtOH and benzos. Alcohol level on admission 546. Patient initially admitted to ICU where he was intubated. Extubated on 09/06/2019. Also to floor 09/14/2019. Monitor for withdrawals, PRN benzodiazepines, folic acid and thiamine. Monitor for seizure and falls. Patient medically optimized to be transferred to inpatient rehab if needed. Note: I was asked by our psych department to do a [facility] peer [facility] with [facility]. Anders and Dr Garza as there was a question of his alcohol withdrawal. I talked both to Dr. Anders and Dr. Garza and updated them about the fact that patient was not actively withdrawing or showing any sign of EtOH withdrawal. I updated them that patient is alert and oriented x4 and all his vitals are stable. Patient was admitted on 09/12/2019, transferred to ICU and downgraded to floor on 09/14/2019 and has not received any benzos since then. (2) Acute respiratory failure Resolved. SPO2 WNL on RA. Due to alcohol and benzo intoxication. Initially admitted to ICU where he was intubated. Extubated on 09/06/2019. (3) Alcohol abuse, daily use Advised on abstinence. Plan is to transfer patient to inpatient rehab as per psych recommendation. Please refer to psych note. (4) Depression Denies any suicidal homicidal ideation. Home meds are duloxetine, amitriptyline. Restart home meds. Started on Depakote and was transferred psych recommendation. Patient plan to transfer to inpatient rehab as per psych recommendation. Please refer to note. (5) PTSD (post-traumatic stress disorder) Denies any suicidal or homicidal ideation. (6) TBI (traumatic brain injury) No focal neurologic deficits. Alert and oriented 3. (7) Acute kidney injury superimposed on CKD Resolved. Back to baseline. History of CKD. Patient is making adequate amount of urine. All electrolytes are WNL. Patient is not volume overloaded. Denies any uremic symptoms. Patient has history of CKD and as per chart review patient's creatinine was 1.39 on 05/09/2011 and has been stable since then. Monitor volume status and electrolytes. Replace as needed. Outpatient PCP and nephrology follow-up. Avoid nephrotoxic meds. Physical Exam Vital Signs: Temp Pulse Resp BP Pulse Ox 98.4 F 84 18 123/70 100 09/19/19 15:59 09/19/19 15:59 09/19/19 15:59 09/19/19 15:59 09/19/19 15:59 Intake & Output 09/18/19 09/19/19 09/20/19 06:59 06:59 06:59 Intake Total 1100 2030 480 Balance 1100 2030 480 Weight 106.1 kg 106 kg General appearance: PRESENT: no acute distress, well-developed, well-nourished Head exam: PRESENT: atraumatic, normocephalic Respiratory exam: PRESENT: clear to auscultation rosenda. ABSENT: rales, rhonchi, wheezes Cardiovascular exam: PRESENT: RRR. ABSENT: diastolic murmur, rubs, systolic murmur GI/Abdominal exam: PRESENT: normal bowel sounds, soft. ABSENT: distended, guarding, mass, organolmegaly, rebound, tenderness Neurological exam: PRESENT: alert, awake, oriented to person, oriented to place, oriented to time, oriented to situation, CN II-XII grossly intact. ABSENT: motor sensory deficit Results Laboratory Results: WBC 4.1 10^3/uL (4.0-10.5) 09/15/19 05:15 RBC 4.03 10^6/uL (4.35-5.55) L 09/15/19 05:15 Hgb 12.4 g/dL (13.5-17.0) L 09/15/19 05:15 Hct 36.1 % (37.9-51.0) L 09/15/19 05:15 MCV 90 fl (80-97) 09/15/19 05:15 MCH 30.8 pg (27.0-33.4) 09/15/19 05:15 MCHC 34.4 g/dL (32.0-36.0) 09/15/19 05:15 RDW 12.9 % (11.5-14.0) 09/15/19 05:15 Plt Count 157 10^3/uL (150-450) 09/15/19 05:15 Lymph % (Auto) 34.2 % (13-45) 09/15/19 05:15 [place] % (Auto) 14.4 % (3-13) H 09/15/19 05:15 Eos % (Auto) 4.3 % (0-6) 09/15/19 05:15 Baso % (Auto) 1.1 % (0-2) 09/15/19 05:15 Absolute Neuts (auto) 1.9 10^3/uL (1.7-8.2) 09/15/19 05:15 Absolute Lymphs (auto) 1.4 10^3/uL (0.5-4.7) 09/15/19 05:15 Absolute Monos (auto) 0.6 10^3/uL (0.1-1.4) 09/15/19 05:15 Absolute Eos (auto) 0.2 10^3/uL (0.0-0.6) 09/15/19 05:15 Absolute Basos (auto) 0.0 10^3/uL (0.0-0.2) 09/15/19 05:15 Seg Neutrophils % 46.0 % (42-78) 09/15/19 05:15 Carbonic Acid 1.12 mmol/L (1.05-1.35) 09/13/19 03:00 HCO3/H2CO3 Ratio 18:1 09/13/19 03:00 ABG pH 7.36 (7.35-7.45) 09/13/19 03:00 ABG pCO2 37.1 mmHg (35-45) 09/13/19 03:00 ABG pO2 239.9 mmHg (80-100) H 09/13/19 03:00 ABG HCO3 20.5 mmol/L (20-24) 09/13/19 03:00 ABG Total CO2 21.7 mmol/L (23-27) L 09/13/19 03:00 ABG O2 Saturation 99.5 % (94-98) H 09/13/19 03:00 ABG Base Excess -4.3 mmol/L 09/13/19 03:00 VBG pH 7.32 (7.30-7.42) 09/12/19 20:12 VBG pCO2 49.0 mmHg (35-63) 09/12/19 20:12 VBG HCO3 24.9 mmol/L (20-32) 09/12/19 20:12 VBG Base Excess -1.7 mmol/L 09/12/19 20:12 FiO2 50% 09/13/19 03:00 Sodium 138.6 mmol/L (137-145) 09/18/19 10:56 Potassium 3.6 mmol/L (3.6-5.0) 09/18/19 10:56 Chloride 103 mmol/L (98-107) 09/18/19 10:56 Carbon Dioxide 25 mmol/L (22-30) 09/18/19 10:56 Anion Gap 11 (5-19) 09/18/19 10:56 BUN 12 mg/dL (7-20) 09/18/19 10:56 Creatinine 1.40 mg/dL (0.52-1.25) H 09/18/19 10:56 Est GFR ( Amer) > 60 (>60) 09/18/19 10:56 Est GFR (MDRD) Non-Af 55 (>60) L 09/18/19 10:56 Glucose 112 mg/dL (75-110) H 09/18/19 10:56 Lactic Acid 3.3 mmol/L (0.7-2.1) H 09/13/19 01:56 Calcium 9.4 mg/dL (8.4-10.2) 09/18/19 10:56 Phosphorus 4.3 mg/dL (2.5-4.5) 09/13/19 01:56 Magnesium 2.0 mg/dL (1.6-2.3) 09/13/19 01:56 Total Bilirubin 0.4 mg/dL (0.2-1.3) 09/16/19 05:55 Direct Bilirubin 0.1 mg/dL (0.0-0.4) 09/16/19 05:55 Neonat Total Bilirubin Not Reportable 09/16/19 05:55 Neonat Direct Bilirubin Not Reportable 09/16/19 05:55 Neonat Indirect Bili Not Reportable 09/16/19 05:55 AST 105 U/L (17-59) H 09/16/19 05:55 ALT 98 U/L (<50) 09/16/19 05:55 Alkaline Phosphatase 62 U/L (38-126) 09/16/19 05:55 Creatine Kinase 705 U/L (55-170) H 09/12/19 20:12 Troponin I < 0.012 ng/mL 09/12/19 20:12 NT-Pro-B Natriuret Pep < 11 pg/mL (<125) 09/12/19 20:12 Total Protein 7.8 g/dL (6.3-8.2) 09/16/19 05:55 Albumin 3.9 g/dL (3.5-5.0) 09/16/19 05:55 TSH 0.38 uIU/mL (0.47-4.68) L 09/12/19 20:12 Free T4 1.08 ng/dL (0.78-2.19) 09/13/19 01:56 Free T3 pg/mL 4.98 pg/mL (2.77-5.27) 09/13/19 01:56 Urine Color STRAW 09/12/19 20:47 Urine Appearance CLEAR 09/12/19 20:47 Urine pH 6.0 (5.0-9.0) 09/12/19 20:47 Ur Specific [place] 1.005 09/12/19 20:47 Urine Protein 30 mg/dL (NEGATIVE) H 09/12/19 20:47 Urine Glucose (UA) NEGATIVE mg/dL (NEGATIVE) 09/12/19 20:47 Urine Ketones NEGATIVE mg/dL (NEGATIVE) 09/12/19 20:47 Urine Blood SMALL (NEGATIVE) H 09/12/19 20:47 Urine Nitrite (Reflex) NEGATIVE (NEGATIVE) 09/12/19 20:47 Urine Bilirubin NEGATIVE (NEGATIVE) 09/12/19 20:47 Urine Urobilinogen NEGATIVE mg/dL (<2.0) 09/12/19 20:47 Leukocyte Esterase Rfl NEGATIVE (NEGATIVE) 09/12/19 20:47 Urine RBC (Auto) 0 /HPF 09/12/19 20:47 U Hyaline Cast (Auto) 1 /LPF 09/12/19 20:47 Urine WBC (Reflex) < 1 /HPF 09/12/19 20:47 Squamous Epi Cells Auto <1 /HPF 09/12/19 20:47 Urine Mucus (Auto) RARE /LPF 09/12/19 20:47 Urine Ascorbic Acid NEGATIVE (NEGATIVE) 09/12/19 20:47 Salicylates < 1.0 mg/dL (2.0-20.0) L 09/12/19 20:12 Urine Opiates Screen NEGATIVE 09/12/19 20:47 Urine Methadone Screen NEGATIVE 09/12/19 20:47 Acetaminophen < 10 ug/mL (10-30) L 09/12/19 20:12 Ur Barbiturates Screen NEGATIVE 09/12/19 20:47 Ur Phencyclidine Scrn NEGATIVE 09/12/19 20:47 Ur Amphetamines Screen NEGATIVE 09/12/19 20:47 U Benzodiazepines Scrn NEGATIVE 09/12/19 20:47 Urine Cocaine Screen NEGATIVE 09/12/19 20:47 U Marijuana (THC) Screen NEGATIVE 09/12/19 20:47 Serum Alcohol 546 mg/dL (NONE DETECTED) H* 09/12/19 20:12 09/12/19 09/12/19 20:12 20:12 Troponin I < 0.012 NT-Pro-B Natriuret Pep < 11 Impressions: KUB X-Ray 09/12/19 00:00 IMPRESSION: Nonspecific bowel gas pattern. Tip of the enteric tube in the stomach. copyright 2010 [employer]- All Rights Reserved Head CT 09/12/19 20:45 IMPRESSION: No acute intracranial abnormality TECHNICAL DOCUMENTATION: Quality ID # 436: Final reports with documentation of one or more dose reduction techniques (e.g., Automated exposure control, adjustment of the mA and/or kV according to patient size, use of iterative reconstruction technique) copyright 2011 [employer]- All Rights Reserved Cervical Spine CT 09/12/19 20:46 IMPRESSION: No significant findings in the cervical spine. Mild degenerative changes at C5-6. Abdomen/Pelvis CT 09/12/19 20:48 IMPRESSION: No acute intrathoracic process. No acute intra-abdominal/pelvic process. TECHNICAL DOCUMENTATION: Quality ID # 436: Final reports with documentation of one or more dose reduction techniques (e.g., Automated exposure control, adjustment of the mA and/or kV according to patient size, use of iterative reconstruction technique) copyright 2010 [employer]- All Rights Reserved Chest CT 09/12/19 20:48 IMPRESSION: No acute intrathoracic process. No acute intra-abdominal/pelvic process. TECHNICAL DOCUMENTATION: Quality ID # 436: Final reports with documentation of one or more dose reduction techniques (e.g., Automated exposure control, adjustment of the mA and/or kV according to patient size, use of iterative reconstruction technique) copyright 2010 [employer]- All Rights Reserved Chest X-Ray 09/13/19 04:00 IMPRESSION: Placement of an enteric tube. Other findings are grossly stable copyright 2010 [employer]- All Rights Reserved Plan Goals: patient will call and schedule Stroke Is this a Stroke Patient?: No Acute Heart Failure - Is this a Heart Failure Patient?: No
[2019-09-19] MEDS: ATORVASTATIN CALCIUM 20 MG TABLET PO SCH (22:50)
[2019-09-20 00:25] VITALS: BP 121/76
== END 2019-09-19 22:57 | disposition home or self-care (01) | DRG 897 ==
LOC: ER 19:57 → EH 22:59 → ICU 23:52 → 3W 09-14 17:13
PROVIDERS: ADMIT Internal Medicine; ATTEND Hospitalist
PROC: 5A1935Z Respiratory Ventilation, Less than 24 Consecutive Hours (ICD-10-PCS; principal; 2019-09-12)
PROC: 0BH17EZ Insertion of Endotracheal Airway into Trachea, Via Natural or Artificial Opening (ICD-10-PCS; 2019-09-12)
DX: F10.129 Alcohol abuse with intoxication, unspecified (principal); N17.9 Acute kidney failure, unspecified; F13.929 Sedative, hypnotic or anxiolytic use, unspecified with intoxication, unspecified; F43.10 Post-traumatic stress disorder, unspecified; Y90.8 Blood alcohol level of 240 mg/100 ml or more; F32.9 Major depressive disorder, single episode, unspecified; E11.22 Type 2 diabetes mellitus with diabetic chronic kidney disease; F17.210 Nicotine dependence, cigarettes, uncomplicated; G47.33 Obstructive sleep apnea (adult) (pediatric); Z87.820 Personal history of traumatic brain injury; I12.9 Hypertensive chronic kidney disease with stage 1 through stage 4 chronic kidney disease, or unspecified chronic kidney disease; N18.9 Chronic kidney disease, unspecified; Z91.14 Patient's other noncompliance with medication regimen; Z88.6 Allergy status to analgesic agent; Z79.4 Long term (current) use of insulin
CPT/HCPCS: 36415; 51702; 70450; 71045; 71260; 72125; 74018; 74177; 80048; 80053; 80307; 81001; 82550; 82803; 83605; 83735; 83880; 84100; 84439; 84443; 84481; 84484; 85025; 87040; 93005; 93010; 94002; 94003; 94660; 96361; 96374; 96375; 99285; 99291; 99292; C9113; J0330; J1644; J1720; J2060; J2310; J2405; J2543; J2704; J3490; J7030; J7040; J7120

== ENCOUNTER → 2020-04-15 | Outpatient (CLI) | payer OTHER ==
[2020-04-15 12:41] LABS: SPERM MORPHOLOGY SENT TO REFERENC LAB
[2020-04-15 13:38] LABS: SPERM CONCENTRATION 46.3 X10^6/mL (>12.0); TOTAL SPERM COUNT 134.3 X10^6 (>33.0)
[2020-04-15 13:40] LABS: SPERM PROGRESSION 3
== END ==
LOC: LAB 12:03
PROVIDERS: ATTEND Specialist
DX: N46.9 Male infertility, unspecified (principal)
CPT/HCPCS: 89320

== ENCOUNTER 2020-05-28 19:58 | Emergency (ER) | payer OTHER ==
--- NOTE | 2020-05-28 21:54 | ER Document Report ---
ED Medical Screen (RME) - General Chief Complaint: Back Pain Stated Complaint: CLINIC REFERRAL CARDIAC CONCERN Time Seen by Provider: 05/28/20 21:51 Primary Care Provider: DERRICK NANCE MD [Primary Care Provider] - Follow up as needed Mode of Arrival: Ambulatory Information source: Patient Notes: 44-year-old male presented to ED for complaint of chest pain and back pain x4 5 days. He states the pain is worse when he moves or takes a deep breath. He states he is only short of breath at nighttime or sometimes when he is watching TV. He states he does not smoke he has had no recent surgery he has had no recent travel. He states he does drink once a week does not use any illicit drugs. He states he does have a history of cholesterol depression high blood pressure traumatic brain injury PTSD a fractured leg with surgery not recent and a back injury. I have discussed this patient with Dr. Tyler. Will do a normal chest pain protocol and add a d-dimer as he was sent over by [facility] to rule out a PE. I have greeted and performed a rapid initial assessment of this patient. A comprehensive ED assessment and evaluation of the patient, analysis of test results and completion of medical decision making process will be conducted by an additional ED providers. TRAVEL OUTSIDE OF THE [place] IN LAST 30 DAYS: No - Related Data Allergies/Adverse Reactions: No Known Allergies Allergy (Verified 05/28/20 21:36) Past Medical History - Social History Frequency of alcohol use: Occasional Drug Abuse: None Family history: None - Past Medical History Cardiac Medical History: Reports: Hx Hypertension Neurological Medical History: Denies: Hx Seizures Renal/ Medical History: Denies: Hx Peritoneal Dialysis Musculoskeltal Medical History: Reports Hx Musculoskeletal Deformity, Reports Hx Musculoskeletal Trauma Psychiatric Medical History: Reports: Hx Depression, Hx Post Traumatic Stress Disorder Traumatic Medical History: Reports: Hx Traumatic Brain Injury Past Surgical History: Reports: Hx Orthopedic Surgery - LLE for compartment syndrome - Immunizations Immunizations up to date: Yes Hx Diphtheria, Pertussis, Tetanus Vaccination: Yes - 2011 Doctor's Discharge - Discharge Referrals: DERRICK NANCE MD [Primary Care Provider] - Follow up as needed
--- NOTE | 2020-05-28 22:33 | RADIOLOGY REPORT (SQ) ---
CLINICAL INDICATION: Chest pain x4 5 days. TECHNIQUE: PA and lateral views were obtained of the chest COMPARISON: September 13, 2019. FINDINGS: The cardiomediastinal silhouette is top normal. The lungs are grossly clear. No evidence of effusion or pneumothorax. Visualized bones are unremarkable. . IMPRESSION: No evidence of active intrathoracic disease . The cause of the patient's chest pain is not identified on this examination.
[2020-05-29 04:51] LABS: ABSOLUTE EOSINOPHILS # (AUTO) 0.1 10^3/uL (0.0-0.6); ABSOLUTE LYMPHOCYTES (AUTO) 2.2 10^3/uL (0.5-4.7); ABSOLUTE MONOCYTES (AUTO) 0.5 10^3/uL (0.1-1.4); ABSOLUTE NEUT (AUTO) 2.3 10^3/uL (1.7-8.2); BASOPHILS % (AUTO) 0.8 % (0-2); EOSINOPHILS % (AUTO) 2.4 % (0-6); HEMATOCRIT 44.5 % (37.9-51.0); LYMPHOCYTES % (AUTO) 41.7 % (13-45); MEAN CORPUSCULAR HEMOGLOBIN 30.7 pg (27.0-33.4); MEAN CORPUSCULAR HGB CONC 33.8 g/dL (32.0-36.0); MEAN CORPUSCULAR VOLUME 91 fl (80-97); MONOCYTES % (AUTO) 10.1 % (3-13); PLATELET COUNT 188 10^3/uL (150-450); RED BLOOD COUNT 4.89 10^6/uL (4.35-5.55); RED CELL DISTRIBUTION WIDTH 13.2 % (11.5-14.0); TOTAL CELLS COUNTED % (AUTO) 100 %; WHITE BLOOD COUNT 5.2 10^3/uL (4.0-10.5)
[2020-05-29 04:58] LABS: ALBUMIN 4.8 g/dL (3.5-5.0); ALKALINE PHOSPHATASE 52 U/L (38-126); ANION GAP 10 (5-19); ASPARTATE AMINO TRANSFERASE 53 U/L (17-59); BILIRUBIN,DIRECT 0.2 mg/dL (0.0-0.4); BILIRUBIN,TOTAL 0.7 mg/dL (0.2-1.3); BLOOD UREA NITROGEN 14 mg/dL (7-20); CALCIUM 9.9 mg/dL (8.4-10.2); CARBON DIOXIDE 25 mmol/L (22-30); CHLORIDE 103 mmol/L (98-107); CREATINE KINASE 420 U/L (55-170); GLUCOSE 114 mg/dL (75-110); POTASSIUM 4.3 mmol/L (3.6-5.0)
[2020-05-29] MEDS ORDERED: ASPIRIN 81 MG TABLET, CHEWABLE PO ONE (05:19)
--- NOTE | 2020-05-29 05:20 | ER Document Report ---
ED Cardiac - General Mode of Arrival: Ambulatory Information source: Patient TRAVEL OUTSIDE OF THE [place] IN LAST 30 DAYS: No <TIA JACOBSON - Last Filed: 05/29/20 07:57> <MICHELET MCWILLIAMS - Last Filed: 05/29/20 09:14> - General Chief Complaint: Chest Pain > 30 Stated Complaint: CLINIC REFERRAL CARDIAC CONCERN Time Seen by Provider: 05/28/20 21:51 Primary Care Provider: DERRICK NANCE MD [EMERITUS] - Follow up tomorrow (Call today for an outpatient follow-up appointment.) Notes: 44-year-old male past medical history significant for hyperlipidemia, traumatic brain injury, depression, PTSD, compartment syndrome presents to the emergency room complaining of intermittent sharp midsternal chest pain for the past 5 days. States increases with movement. Radiates to his back. Denies any nausea, vomiting, no diaphoresis. Has not been taking any medications for symptoms. Patient states he was seen at [facility] and was referred to the emergency room for further evaluation of his chest pain and to rule out possible PE. Patient does deny any recent travel. No recent surgeries, no history of PEs or DVTs, no hemoptysis, not tachycardic. (TIA JACOBSON) - Related Data Allergies/Adverse Reactions: No Known Allergies Allergy (Verified 05/28/20 21:36) Past Medical History - General Information source: Patient - Social History Smoking Status: Never Smoker Frequency of alcohol use: Occasional Drug Abuse: None Family History: Hypertension. denies: CAD - Past Medical History Cardiac Medical History: Reports: Hx Hypertension Neurological Medical History: Denies: Hx Seizures Renal/ Medical History: Denies: Hx Peritoneal Dialysis Musculoskeletal Medical History: Reports Hx Musculoskeletal Deformity, Reports Hx Musculoskeletal Trauma Psychiatric Medical History: Reports: Hx Depression, Hx Post Traumatic Stress Disorder Traumatic Medical History: Reports: Hx Traumatic Brain Injury Past Surgical History: Reports: Hx Orthopedic Surgery - LLE for compartment syndrome - Immunizations Immunizations up to date: Yes Hx Diphtheria, Pertussis, Tetanus Vaccination: Yes - 2011 <TIA JACOBSON - Last Filed: 05/29/20 07:57> Review of Systems - Review of Systems Constitutional: No symptoms reported EENT: No symptoms reported Cardiovascular: Chest pain. denies: Dyspnea Respiratory: denies: Short of breath Gastrointestinal: No symptoms reported. denies: Nausea, Vomiting Musculoskeletal: No symptoms reported Skin: No symptoms reported Hematologic/Lymphatic: No symptoms reported Neurological/Psychological: No symptoms reported -: Yes All other systems reviewed and negative <TIA JACOBSON - Last Filed: 05/29/20 07:57> Physical Exam - General General appearance: Appears well, Alert In distress: Mild - HEENT Head: Normocephalic, Atraumatic Eyes: Normal Pupils: PERRL - Respiratory Respiratory status: No respiratory distress Chest status: Tender - Tenderness on palpation over the midsternal area. No obvious deformity noted. Breath sounds: Normal Chest palpation: Normal - Cardiovascular Rhythm: Regular Heart sounds: Normal auscultation Murmur: No - Abdominal Inspection: Normal Distension: No distension Bowel sounds: Normal Tenderness: Nontender Organomegaly: No organomegaly - Back Back: Normal, Nontender. No: Deformity/step-off, CVA tenderness, Vertebra tende rness - Neurological Neuro grossly intact: Yes Cognition: Normal Orientation: AAOx4 Marquita Coma Scale Eye Opening: Spontaneous Marquita Coma Scale Verbal: Oriented Marquita Coma Scale Motor: Obeys Commands Tyrone Coma Scale Total: 15 Speech: Normal Motor strength normal: LUE, RUE, LLE, RLE Sensory: Normal - Skin Skin Temperature: Warm Skin Moisture: Dry Skin Color: Normal <TIA JACOBSON - Last Filed: 05/29/20 07:57> - Vital signs Vitals: Temp Pulse BP Pulse Ox 98.5 F 79 143/93 H 99 05/29/20 01:58 05/29/20 01:58 05/29/20 01:58 05/29/20 01:58 Course - Laboratory Result Diagrams: 05/29/20 04:30 05/29/20 04:30 - Diagnostic Test Radiology reviewed: Reports reviewed - EKG Interpretation by Mo EKG shows normal: Sinus rhythm Rate: Normal <TIA JACOBSON - Last Filed: 05/29/20 07:57> - Laboratory Result Diagrams: 05/29/20 04:30 05/29/20 04:30 <MICHELET MCWILLIAMS - Last Filed: 05/29/20 09:14> - Re-evaluation Re-evalutation: 05/29/20 05:28 HEART Score: History 1 ECG 0 Age 0 Risk Factors 2 Troponin 0 Total: *3 If HEART score is = 3 AND both tronponin measurments are normal, the 30 day risk of a major adverse cardiac event (all-cause mortality, myocardia infarction or need for coronary revscularization) is < 1% (Sensitivity 100%, NPV 100%). Chest pain in a patient without evidence of cardiac or other serious etiology on workup today. I discussed with patient that, based on their age, risk factors and emergency department testing today, the likelihood that their symptoms are related to a heart attack is very low (estimated risk of heart attack or over the next 30 days of less than 1%). The patient demonstrates decision making capacity and has verbalized an understanding of these risks to me. Based on this, the patient has chosen to follow-up as an outpatient. Usual chest pain return precautions reviewed. The patient states understanding and agreement with this plan. 05/29/20 06:47 Patient is resting comfortably sleeping but easily arousable. Pain-free on exam. Reviewed all labs, EKG, and chest x-ray results with patient. Patient is aware that we need to do a repeat troponin at 730 if repeat troponin remains negative patient will be discharged home. (TIA JACOBSON) 05/29/20 09:12 Delta troponin reviewed, no concern for ND or ACS at this time. Patient with reproducible chest wall tenderness. Discussed plan of care with patient, patient is agreeable with discharge at this time. (MICHELET MCWILLIAMS) - Vital Signs Vital signs: Temp Pulse Resp BP Pulse Ox 98.5 F 79 12 116/81 93 05/29/20 01:58 05/29/20 01:58 05/29/20 08:31 05/29/20 08:31 05/29/20 08:31 - Laboratory Laboratory results interpreted by me: 05/29/20 04:30 Creatinine 1.33 H Est GFR (MDRD) Non-Af 59 L Glucose 114 H ALT 55 H Creatine Kinase 420 H Total Protein 9.0 H - EKG Interpretation by Me Additional EKG results interpreted by me: 05/29/20 05:27 EKG interpreted by ER physician Dr. Tyler No acute STEMI Normal sinus rhythm Rate [address] wave abnormalities. (TIA JACOBSON) Discharge <TIA JACOBSON - Last Filed: 09/11/20 07:57> <CHITO MCWILLIAMSBOBJOEL - Last Filed: 05/29/20 09:14> - Discharge Clinical Impression: Chest pain Qualifiers: Chest pain type: unspecified Qualified Code(s): R07.9 - Chest pain, unspecified Condition: Stable Disposition: HOME, SELF-CARE Instructions: Chest Pain of Unclear Cause ([facility]), Chest Wall Pain ([facility]) Additional Instructions: It is important that you follow-up outpatient with your primary care physician for further evaluation of your chest pain. Return to the emergency room for any new or worsening symptoms. You were seen today for chest pain. The exact cause of your pain is unclear. However, based on your cardiac enzyme testing, chest x-ray, and EKG it does not appear that it is from an immediately life-threatening cause at this time. Although your testing here is normal is critical that you follow-up with your primary care physician for continued evaluation of this chest pain and possible stress testing. I recommended you see your physician within the next 24-48 hours to be evaluated for consideration of a stress test. Please return to emergency department immediately if you have worsening of your chest pain, shortness of breath, vomiting, become unable to exert yourself due to pain or difficulty breathing, you pass out, or have any pain that radiates into your arms, jaw, or back. Please also return if you have any additional symptoms that are concerning to you. Prescriptions: Naproxen [Naprosyn 250 Nmg Tablet] 1 tab PO BID #14 tablet Methocarbamol [Robaxin 500 Mg Tablet] 500 mg PO QID PRN #24 tablet PRN Reason: Referrals: DERRICK NANCE MD [EMERITUS] - Follow up tomorrow (Call today for an outpatient follow-up appointment.) YANETH SERNA MD [ACTIVE STAFF] - Follow up as needed
[2020-05-29 05:33] LABS: PROTHROMBIN TIME 13.4 SEC (11.4-15.4)
[2020-05-29 05:34] LABS: PARTIAL THROMBOPLASTIN TIME 29.9 SEC (23.5-35.8)
[2020-05-29 05:48] LABS: D-DIMER < 0.27 ug/mL (0.00-0.50)
[2020-05-29 06:24] LABS: CREATINE KINASE MB 2.36 ng/mL (<4.55); TROPONIN I < 0.012 ng/mL
[2020-05-29] MEDS ORDERED: METHOCARBAMOL 500 MG TABLET PO ONE (09:11)
[2020-05-29] MEDS ORDERED: IBUPROFEN 800 MG TABLET PO ONE (09:11)
[2020-05-29 09:23] VITALS: BP 112/90
--- NOTE | 2020-05-29 16:47 | EKG REPORT ---
SEVERITY:- NORMAL ECG - SINUS RHYTHM : Confirmed by: Tai Oneal MD 29-May-2020 16:45:30
== END 2020-05-29 09:23 | disposition home or self-care (01) ==
LOC: ER 19:58
DX: R07.9 Chest pain, unspecified (principal); I10 Essential (primary) hypertension; E78.5 Hyperlipidemia, unspecified; Z87.820 Personal history of traumatic brain injury
CPT/HCPCS: 36415; 71046; 80053; 82550; 82553; 83735; 84484; 85025; 85379; 85610; 85730; 93005; 93010; 99285